=== PATIENT | male | born 1945 | race Caucasian/White ===

== ENCOUNTER 2016-09-14 20:51 | Emergency (ER) | payer OTHER ==
--- NOTE | 2016-09-15 00:56 | ED NURSING NOTES ---
Clinical Report - Nurses [facility] [address] [place] [address] 09/14/2016 20:51 Patient: CAROL ANN LEMUS TRIAGE Triage time 21:37 Sep 14 2016. Acuity: LEVEL 3. Chief Complaint: (abdominal pain). Alert. No acute distress. ( pt unable to provide a number). THERON COMA SCORE: [place] Coma Scale: 15- eyes open spontaneously (4); best verbal response- oriented x 4 (5); best motor response- obeys commands (6). --21:42 Lindy Pichardo R.N. 21:37 09/14/16. BP: 111/61. HR: 68. RR: 18. O2 saturation: 95%. Temp: 98.2 F. --21:42 Lindy Pichardo R.N. Weight: 60.7 kg stated. Height/Length: 73 inches Per Patient. BMI: 17.7. --21:36 Lindy Pichardo R.N. Medications Antidepressant. OTC laxative . Spiriva HandiHaler Inhalation. Symbicort Inhalation. --21:39 Lindy Pichardo R.N. Senna Laxative Oral. --21:40 Lindy Pichardo R.N. Medication/allergy information source: the patient's family. --21:42 Lindy Pichardo R.N. Allergies No Known Drug Allergy. --21:39 Lindy Pichardo R.N. History Arrived by private vehicle. Historian: patient. Accompanied by family and (son). Primary physician (Mary Jane). ( Son brought in his dad for concerns of Constipation. Dad c/o's Abdominal Pain. Drank Mag Cittrate with no relief.). This started yesterday. 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 PAST MEDICAL HX: Immunizations: has received pneumonia vaccine; seasonal influenza. SOCIAL HX: Former smoker. Alcohol use; consumes wine by the glass. No drug use. FALL RISK ASSESSMENT: Fall risk assessment completed. No fall risk identified. NUTRITIONAL RISK ASSESSMENT: The nutritional risk assessment revealed no deficiencies. FUNCTIONAL ASSESSMENT: Functional assessment: no impairments noted. LEARNING NEEDS ASSESSMENT: The learning needs assessment revealed no barriers. SKIN INTEGRITY ASSESSMENT: Skin integrity risk assessment completed. No skin integrity risk identified. --21:42 Lindy Pichardo R.N. PROBLEMS: UTI - Urinary Tract Infection. Urine retention . Abdominal Pain. Lewy Body Disease. Fecal Impaction. Immunizations. Weight loss of 25-30 lb in over last year. . Constipation. COPD - Chronic Obstructive Pulmonary Disease. --21:41 Lindy Pichardo R.N. ADDITIONAL SURGERIES: Hernia Repair. Tonsillectomy. --21:41 Lindy Pichardo R.N. Interventions ID band on patient. To room. --21:42 Lindy Pichardo R.N. PHYSICAL ASSESSMENT 21:48 09/14/16. To room via wheelchair. GENERAL / NEURO / PSYCH: Alert. Oriented X 4. Appears in no acute distress. RESPIRATORY: Respirations not labored. GI / : Abdominal tenderness diffusely. SKIN: Skin is warm and dry. --21:48 Dominga Turner. NURSING PROGRESS NOTES Patient ready for evaluation- ED physician notified. --21:42 Lindy Pichardo R.N. Pulse oximeter and NIBP monitor placed on patient; monitor alarms on. Patient gowned. Head of bed elevated. Warming measures: blanket applied. Reassurance given to the patient. Two patient identifiers checked. Call light placed in reach. Side rails up x 1. Bed placed in lowest position. Brakes of bed on. Patient ready for evaluation- chart flagged. --21:48 Dominga Turner 21:48 09/14/16. BP: 150/86. HR: 69. RR: 20. O2 saturation: 100% on room air. Pain level now: 03/22. --21:50 Dominga Turner 21:50 09/14/16. --21:50 Dominga Turner ( Milk of molasses enema administered. Patient assisted to bedside commode.). --22:57 Dominga Turner ( Patient cleaned and fresh linens applied to bed.). --22:57 Dominga Turner 22:58 09/14/2016 Fleet Enema (Enema) NH Supp/(NH) 1 application given. Allergies verified and confirmed 5 rights. --22:58 Dominga Turner ( RN attempted to disimpact patient, Fleets given again, small bowel movement.). --23:47 Dominga Turner 00:10 09/15/16. BP: 133/75. HR: 66. RR: 20. O2 saturation: 100% on room air. Pain level now: 0/10. --00:11 Dominga Turner ( Patient had medium BM. Patient assisted back into bed, skin cleaned and new linens applied. Clean depends placed on patient and catheter secured with Velcro strap. Patient states he feels better. Patient given water, warm blankets and lights dimmed.). --00:11 Dominga Turner ( Patient son called and updated on patient status.). --00:17 Dominga Turner 00:47 09/15/2016 Nitrofurantoin PO Capsules 100 mg given. Allergies verified and confirmed 5 rights. --00:47 Dominga Turner ( Patient states that he has no stomach pain anymore and he states he thinks he could go home and have a bowel moment. Patient told that xray shows some stool left but the patient states now that he is cleaned up and out of pain he does not want to do an additional enema.). --00:52 Dominga Turner ( Patient son updated on patient disposition. Son is on his way to hot die picker the patient. Spoke to son about discharge instructions.). --01:03 Dominga Turner. DISPOSITION / DISCHARGE Condition at departure: stable. No learning barriers present. Discharge instructions provided and reviewed with the patient. Discharge instructions not provided and reviewed with family. Reviewed medication(s) side effects, precautions, dosing and course information. Prescription(s) given to the relief pharmacist. Reviewed need for increased fluid intake. Patient and family verbalized understanding. Written instructions provided in Greenlandic. The patient was discharged by the physician. He was discharged home and accompanied by family. He left the Emergency Department in a wheelchair and via private vehicle. Family member driving. --01:04 Dominga Turner 01:03 09/15/16. BP: 116/70. HR: 65. RR: 20. O2 saturation: 96% on room air. Temp: 97.7 F (oral). Pain level now: 0/10. --01:04 Dominga Turner. Locked/Released at 09/15/2016 1:05 by Dominga Turner,
--- NOTE | 2016-09-15 00:56 | ED ORDER SUMMARY ---
..... Patient: CAROL ANN LEMUS OrderSheet [facility] VisitID: [id number] [place] [address] 71y, M Registration Date/Time: 09/14/2016 ORDER SHEET Weight: 60.7 kg (stated) Allergies: No Known Drug Allergy GENERAL ORDERS: Abd Series 2V Abd/1V Chest Urgent (22:09/14/2016 [facility]) (Ack 22:08 LTapper) (22:28 MCampbell) UA-Culture if indicated Urgent (:09/14/2016 [facility]) (Ack 22:08 LTapper) (0:12 HSoule) Abdomen 1V Upright (post disimpaction) Urgent (:09/15/2016 [facility]) (Ack 0:11 Kbekconstance) (0:33 Jerica MATUTE) MEDICATION ORDERS: - (Fleets enema OR - oil based then water based) (22:09/14/2016 [facility]) (Ack 22:18 HSoule) (22:58 HSoule) Nitrofurantoin PO 100 mg (NOW) (00:22 09/15/2016 [facility]) (Ack 0:28 HSoule) (0:47 HSoule) IV FLUIDS: ORDER SHEET NOTES: [Electronically signed by Dominga Turner (01:05 09/15/2016)] [Electronically signed by Thomas Downing DO (03:34 09/15/2016)] [Electronically locked/signed by Dominga Turner (01:05 09/15/2016)]
--- NOTE | 2016-09-15 00:56 | ED ORDER SUMMARY ---
..... Patient: CAROL ANN LEMUS OrderSheet [facility] VisitID: [id number] [place] [address] 71y, M Registration Date/Time: 09/14/2016 ORDER SHEET Weight: 60.7 kg (stated) Allergies: No Known Drug Allergy GENERAL ORDERS: Abd Series 2V Abd/1V Chest Urgent (22:09/14/2016 [facility]) (Ack 22:08 LTapper) (22:28 MCampbell) UA-Culture if indicated Urgent (:09/14/2016 [facility]) (Ack 22:08 LTapper) (0:12 HSoule) Abdomen 1V Upright (post disimpaction) Urgent (:09/15/2016 [facility]) (Ack 0:11 Kbekconstance) (0:33 Jerica MATUTE) MEDICATION ORDERS: - (Fleets enema CO - oil based then water based) (22:09/14/2016 [facility]) (Ack 22:18 HSoule) (22:58 HSoule) Nitrofurantoin PO 100 mg (NOW) (00:22 09/15/2016 [facility]) (Ack 0:28 HSoule) (0:47 HSoule) IV FLUIDS: ORDER SHEET NOTES: [Electronically signed by Dominga Turner (01:05 09/15/2016)] [Electronically signed by Thomas Downing DO (03:34 09/15/2016)] [Electronically locked/signed by Dominga Turner (01:05 09/15/2016)]
--- NOTE | 2016-09-15 00:56 | ED NURSING NOTES ---
Clinical Report - Nurses [facility] [address] [place] [address] 09/14/2016 20:51 Patient: CAROL ANN LEMUS TRIAGE Triage time 21:37 Sep 14 2016. Acuity: LEVEL 3. Chief Complaint: (abdominal pain). Alert. No acute distress. ( pt unable to provide a number). THERON COMA SCORE: [place] Coma Scale: 15- eyes open spontaneously (4); best verbal response- oriented x 4 (5); best motor response- obeys commands (6). --21:42 Lindy Pichardo R.N. 21:37 09/14/16. BP: 111/61. HR: 68. RR: 18. O2 saturation: 95%. Temp: 98.2 F. --21:42 Lindy Pichardo R.N. Weight: 60.7 kg stated. Height/Length: 73 inches Per Patient. BMI: 17.7. --21:36 Lindy Pichardo R.N. Medications Antidepressant. OTC laxative . Spiriva HandiHaler Inhalation. Symbicort Inhalation. --21:39 Lindy Pichardo R.N. Senna Laxative Oral. --21:40 Lindy Pichardo R.N. Medication/allergy information source: the patient's family. --21:42 Lindy Pichardo R.N. Allergies No Known Drug Allergy. --21:39 Lindy Pichardo R.N. History Arrived by private vehicle. Historian: patient. Accompanied by family and (son). Primary physician (Mary Jane). ( Son brought in his dad for concerns of Constipation. Dad c/o's Abdominal Pain. Drank Mag Cittrate with no relief.). This started yesterday. 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 PAST MEDICAL HX: Immunizations: has received pneumonia vaccine; seasonal influenza. SOCIAL HX: Former smoker. Alcohol use; consumes wine by the glass. No drug use. FALL RISK ASSESSMENT: Fall risk assessment completed. No fall risk identified. NUTRITIONAL RISK ASSESSMENT: The nutritional risk assessment revealed no deficiencies. FUNCTIONAL ASSESSMENT: Functional assessment: no impairments noted. LEARNING NEEDS ASSESSMENT: The learning needs assessment revealed no barriers. SKIN INTEGRITY ASSESSMENT: Skin integrity risk assessment completed. No skin integrity risk identified. --21:42 Lindy Pichardo R.N. PROBLEMS: UTI - Urinary Tract Infection. Urine retention . Abdominal Pain. Lewy Body Disease. Fecal Impaction. Immunizations. Weight loss of 25-30 lb in over last year. . Constipation. COPD - Chronic Obstructive Pulmonary Disease. --21:41 Lindy Pichardo R.N. ADDITIONAL SURGERIES: Hernia Repair. Tonsillectomy. --21:41 Lindy Pichardo R.N. Interventions ID band on patient. To room. --21:42 Lindy Pichardo R.N. PHYSICAL ASSESSMENT 21:48 09/14/16. To room via wheelchair. GENERAL / NEURO / PSYCH: Alert. Oriented X 4. Appears in no acute distress. RESPIRATORY: Respirations not labored. GI / : Abdominal tenderness diffusely. SKIN: Skin is warm and dry. --21:48 Dominga Turner. NURSING PROGRESS NOTES Patient ready for evaluation- ED physician notified. --21:42 Lindy Pichardo R.N. Pulse oximeter and NIBP monitor placed on patient; monitor alarms on. Patient gowned. Head of bed elevated. Warming measures: blanket applied. Reassurance given to the patient. Two patient identifiers checked. Call light placed in reach. Side rails up x 1. Bed placed in lowest position. Brakes of bed on. Patient ready for evaluation- chart flagged. --21:48 Dominga Turner 21:48 09/14/16. BP: 150/86. HR: 69. RR: 20. O2 saturation: 100% on room air. Pain level now: 03/22. --21:50 Dominga Turner 21:50 09/14/16. --21:50 Dominga Turner ( Milk of molasses enema administered. Patient assisted to bedside commode.). --22:57 Dominga Turner ( Patient cleaned and fresh linens applied to bed.). --22:57 Dominga Turner 22:58 09/14/2016 Fleet Enema (Enema) GA Supp/(GA) 1 application given. Allergies verified and confirmed 5 rights. --22:58 Dominga Turner ( RN attempted to disimpact patient, Fleets given again, small bowel movement.). --23:47 Dominga Turner 00:10 09/15/16. BP: 133/75. HR: 66. RR: 20. O2 saturation: 100% on room air. Pain level now: 0/10. --00:11 Dominga Turner ( Patient had medium BM. Patient assisted back into bed, skin cleaned and new linens applied. Clean depends placed on patient and catheter secured with Velcro strap. Patient states he feels better. Patient given water, warm blankets and lights dimmed.). --00:11 Dominga Turner ( Patient son called and updated on patient status.). --00:17 Dominga Turner 00:47 09/15/2016 Nitrofurantoin PO Capsules 100 mg given. Allergies verified and confirmed 5 rights. --00:47 Dominga Turner ( Patient states that he has no stomach pain anymore and he states he thinks he could go home and have a bowel moment. Patient told that xray shows some stool left but the patient states now that he is cleaned up and out of pain he does not want to do an additional enema.). --00:52 Dominga Turner ( Patient son updated on patient disposition. Son is on his way to orange picker the patient. Spoke to son about discharge instructions.). --01:03 Dominga Turner. DISPOSITION / DISCHARGE Condition at departure: stable. No learning barriers present. Discharge instructions provided and reviewed with the patient. Discharge instructions not provided and reviewed with family. Reviewed medication(s) side effects, precautions, dosing and course information. Prescription(s) given to the livestock inspector. Reviewed need for increased fluid intake. Patient and family verbalized understanding. Written instructions provided in Amharic. The patient was discharged by the physician. He was discharged home and accompanied by family. He left the Emergency Department in a wheelchair and via private vehicle. Family member driving. --01:04 Dominga Turner 01:03 09/15/16. BP: 116/70. HR: 65. RR: 20. O2 saturation: 96% on room air. Temp: 97.7 F (oral). Pain level now: 0/10. --01:04 Dominga Turner. Locked/Released at 09/15/2016 1:05 by Dominga Turner,
--- NOTE | 2016-09-15 00:56 | ED CLINICAL REPORT ---
Clinical Report - Physicians/Mid Levels [facility] [address] [place] [place] [address] 09/14/2016 20:51 Patient: CAROL ANN LEMUS Time Seen: 22:04. Arrived- By private vehicle. Historian- patient. HISTORY OF PRESENT ILLNESS Chief Complaint: ABDOMINAL PAIN and CONSTIPATION. At its maximum, severity described as moderate. When seen in the E.D., it was almost gone. Modifying factors- worsened by movement. Relieved by rest. It is described as "pain" and cramping. No radiation. It is described as generalized in location and located in the left lower quadrant. This started yesterday and is still present. It was gradual in onset and has been waxing/waning. No nausea, vomiting or diarrhea. Similar symptoms previously: Recent medical care: The patient was seen recently at this facility in the emergency department. REVIEW OF SYSTEMS The patient has had constipation and difficulty with urination. No pain with urination, urinary frequency, fever, headache or sore throat. No chest pain, difficulty breathing or back pain. All systems otherwise negative, except as recorded above. PAST HISTORY Primary physician (Mary Jane) Urine retention . Abdominal Pain. Lewy Body Disease. Fecal Impaction. Weight loss of 25-30 lb in over last year. . Constipation. COPD SURGERIES: Hernia Repair. Tonsillectomy. Medications: Senna Laxative Oral. Antidepressant. OTC laxative . Spiriva HandiHaler Inhalation. Symbicort Inhalation. Allergies: No Known Drug Allergy. SOCIAL HISTORY Former smoker. Occasional alcohol use. No drug use. ADDITIONAL NOTES The nursing notes have been reviewed. PHYSICAL EXAM Vital Signs: 09/14/2016 21:48 BP: 150/86. HR: 69. RR: 20. O2 saturation: 100%. Pain level now: 03/22. 09/14/2016 21:37 BP: 111/61. HR: 68. RR: 18. O2 saturation: 95%. Temp: 98.2 F. Appearance: Alert. No acute distress. Eyes: Pupils equal, round and reactive to light. Eyes normal inspection. No scleral icterus or pale conjunctivae. ENT: Pharynx normal. No pharyngeal erythema or tonsillar exudate. The mucous membranes are not dry. Neck: Normal inspection. Neck supple. CVS: Heart sounds normal. Pulses normal. Respiratory: No respiratory distress. Breath sounds normal. Abdomen: Soft. No mass. No rebound tenderness or guarding. Back: Normal inspection. : (Kelley cath in place). Skin: Skin warm and dry. Normal skin color. Normal skin turgor. Extremities: Bilateral moderate pitting edema of the lower extremities. Extremities exhibit normal ROM. No calf tenderness. Neuro: No motor deficit. LABS, X-RAYS, AND EKG Laboratory Tests: UA-Culture if indicated: (WILY: 09/14/2016 23:55) ( MsgRcvd 09/15/2016 00:08) Final results Test Result Flag Units (Reference) URINE COLOR YELLOW URINE APPEARANCE CLEAR URINE GLUCOSE NEGATIVE (NEGATIVE) URINE BILIRUBIN 1+ (NEGATIVE) QNS FOR CONFIRMATORY BILIRUBIN TEST URINE KETONE NEGATIVE (NEGATIVE) URINE SPECIFIC GRAVITY >= 1.030 (1.010-1.030) URINE PH 5.5 (5.0-8.0) URINE PROTEIN TRACE (NEGATIVE) URINE UROBILINOGEN 0.2 EU/dL (0.2-1.0) URINE NITRITE NEGATIVE (NEGATIVE) URINE BLOOD 2+ (NEGATIVE) URINE LEUK ESTERASE POSITIVE (NEGATIVE) URINE RBC 5-10 rbc/hpf (0-1) URINE WBC 15-25 wbc/hpf (0-1) URINE EPITHELIAL CELLS 1-3 EPI/hpf (0-5) URINE BACTERIA MODERATE (2+ TO 3+) (NONE SEEN) URINE COMMENT CULTURE INDICATED CALCIUM OXALATE CRYSTALS 2+URINE CULTURES ARE SET-UP BASED ON THE FOLLOWING CRITERIA:POSITIVE NITRITEPOSITIVE LEUKOCYTE ESTERASEGREATER THAN 10 WHITE BLOOD CELLSMODERATE (2+) OR GREATER BACTERIA . Microbiology: Urine culture ordered. Pulse Oximetry: 09/14/2016 21:48 O2 saturation: 100%. (FIO2 - room air). Interpretation: normal. PROGRESS AND PROCEDURES Course of Care: Nitrofurantoin 100 mg PO given. Fleets enema KS. Milk of molasses enema administered 00:30 09/15/16. Patient is stable. Physical exam findings are improved. Symptoms much better. 00:54 09/15/16. No abdominal pain. Pt still with some stool in rectum on x-ray, but refuses further enemas. Pt will need to follow up closely with his pcp / [facility] for ongoing management of this chronic, recurring condition. Patient/family counseled. Old ED records reviewed. Patient has had multiple ED visits. Disposition: Discharged. Condition: stable and improved. CLINICAL IMPRESSION Constipation Acute urinary tract infection with cystitis associated with indwelling catheter. Lewy Body Disease. COPD (stable) Chronic urinary retention with chronic Kelley catheter. INSTRUCTIONS Drink plenty of fluids. Avoid alcohol and NSAIDS. NSAIDS include aspirin, ibuprofen (Advil) and naproxen (Aleve). Avoid fatty, fried/greasy, lactose-containing (such as milk, cheese and ice cream), salty and spicy foods until better. Warnings: Further evaluation is necessary. It is very important to follow up with a physician. GENERAL WARNINGS: Return or contact your physician immediately if your condition worsens or changes unexpectedly, if not improving as expected, or if other problems arise. Your Current Medications: CONTINUE TAKING THE FOLLOWING MEDICATIONS: Antidepressant*. OTC laxative *. Senna Laxative Oral. Spiriva HandiHaler Inhalation. Symbicort Inhalation. Prescription Medications: Macrobid 100 mg: Take 1 capsule orally every 12 hours for 7 days. No refills. Substitution is permissible. Miralax: take 1 measuring cupful supplied (1 heaping tablespoon) mixed in 8 ounces liquid daily as needed for constipation. Dispense fourteen (14) ounce bottle. No refill. Substitution is permissible. OTC Medications: Take Dulcolax, magnesium citrate and Fleets enema according to label instructions. Available over the counter. Follow-up: Follow up with your doctor Primary physician (Mary Jane) tomorrow. Follow up with a spring forger- as recommended by your primary care physician. Call for the next available appointment. (Electronically signed by Thomas Downing DO 09/15/2016 3:34)
--- NOTE | 2016-09-15 01:35 | DIAGNOSTIC IMAGING REPORT ---
PROCEDURE: XR ABD SERIES 2V ABD/1V CHEST INDICATION: CONSTIPATION TECHNIQUE: AP supine and upright views with PA view chest. COMPARISON: Comparison is made to acute abdominal radiograph on 07/26/2016. FINDINGS: ABDOMEN: There is moderate gaseous distention of the colon and small bowel with air-fluid levels. There is moderate to large amount of stool in the rectum. There is no evidence of free air. There mild degenerate changes of the lumbar spine. CHEST: Pulmonary hyperexpansion. Mild biapical parenchymal scarring. Lungs are otherwise clear. Heart and mediastinum are normal. Thorax is normal. IMPRESSION: 1. Moderate to large amount of stool in the rectum with moderate gaseous distention of the colon small bowel. Findings suggest obstipation. 2. Pulmonary hyperexpansion and chronic obstructive pulmonary disease. 3. Findings discussed with Dr. Downing.
--- NOTE | 2016-09-15 01:39 | DIAGNOSTIC IMAGING REPORT ---
PROCEDURE: XR ABDOMEN 1 VIEW UPRIGHT INDICATION: Follow-up disimpaction. TECHNIQUE: AP upright view. (0025 hours). COMPARISON: Compared to acute abdominal series on 09/14/2016. FINDINGS: There has been moderate improvement with partial evacuation of stool in the rectum with resolving gaseous distention of the colon (moderate residual). IMPRESSION: 1. Moderate improvement with partial evacuation of rectal stool and resolving bowel distention. 2. Findings discussed with Dr. Downing.
--- NOTE | 2016-09-15 03:35 | ED MAR SUMMARY ---
..... Medication Administration Record [facility] [address] [place] [address] Patient: CAROL ANN LEMUS Visit ID: [id number] 71y, M Weight: 60.7 kg Height/Length: 73 in BMI: 17.7 ALLERGIES: No Known Drug Allergy Given 22:58 09/14/2016 Dominga Turner, Medication Administered: FLEET ENEMA [ND] (ENEMA), Dose: 1 application Supp/(ND) ND. Medication Ordered: - (Fleets enema ND - oil based then water based). Given 00:47 09/15/2016 Dominga Turner, Medication Administered: NITROFURANTOIN [PO], Dose: 100 mg Capsules PO. Medication Ordered: Nitrofurantoin PO 100 mg (NOW).
--- NOTE | 2016-09-15 03:35 | ED MED RECONCILIATION SUMMARY ---
Patient: CAROL ANN LEMUS Medication Reconciliation Report [facility] VisitID: [id number] [address] [place] [address] 71y, M Registration Date/Time: 09/14/2016 Weight: 60.7 kg Height/Length: 73 in. BMI: 17.7 ALLERGIES: No Known Drug Allergy The patient's Home Medications are listed below: CONTINUE TAKING THE FOLLOWING MEDICATIONS: Antidepressant OTC laxative Senna Laxative Oral Spiriva HandiHaler Inhalation Symbicort Inhalation The source(s) of the original Home Medication information: patient's family member The following Medications were given to the patient in the Emergency Department: Fleet Enema [[place]] [place] 1 application, administered: 09/14/2016 10:58:00 PM Nitrofurantoin [PO] PO 100 mg, administered: 09/15/2016 12:47:00 AM The following Medications were prescribed to the patient: Take Dulcolax, magnesium citrate and Fleets enema according to label instructions. Available over the counter. -- Thomas Downing DO Macrobid 100 mg: Take 1 capsule orally every 12 hours for 7 days. No refills. Substitution is permissible. -- Thomas Downing DO Miralax: take 1 measuring cupful supplied (1 heaping tablespoon) mixed in 8 ounces liquid daily as needed for constipation. Dispense fourteen (14) ounce bottle. No refill. Substitution is permissible. -- Thomas Downing DO
--- NOTE | 2016-09-15 03:35 | ED MED RECONCILIATION SUMMARY ---
Patient: CAROL ANN LEMUS Medication Reconciliation Report [facility] VisitID: [id number] [address] [place] [address] 71y, M Registration Date/Time: 09/14/2016 Weight: 60.7 kg Height/Length: 73 in. BMI: 17.7 ALLERGIES: No Known Drug Allergy The patient's Home Medications are listed below: CONTINUE TAKING THE FOLLOWING MEDICATIONS: Antidepressant OTC laxative Senna Laxative Oral Spiriva HandiHaler Inhalation Symbicort Inhalation The source(s) of the original Home Medication information: patient's family member The following Medications were given to the patient in the Emergency Department: Fleet Enema [AK] AK 1 application, administered: 09/14/2016 10:58:00 PM Nitrofurantoin [PO] PO 100 mg, administered: 09/15/2016 12:47:00 AM The following Medications were prescribed to the patient: Take Dulcolax, magnesium citrate and Fleets enema according to label instructions. Available over the counter. -- Thomas Downing DO Macrobid 100 mg: Take 1 capsule orally every 12 hours for 7 days. No refills. Substitution is permissible. -- Thomas Downing DO Miralax: take 1 measuring cupful supplied (1 heaping tablespoon) mixed in 8 ounces liquid daily as needed for constipation. Dispense fourteen (14) ounce bottle. No refill. Substitution is permissible. -- Thomas Downing DO
--- NOTE | 2016-09-15 03:35 | ED MAR SUMMARY ---
..... Medication Administration Record [facility] [address] [place] [address] Patient: CAROL ANN LEMUS Visit ID: [id number] 71y, M Weight: 60.7 kg Height/Length: 73 in BMI: 17.7 ALLERGIES: No Known Drug Allergy Given 22:58 09/14/2016 Dominga Turner, Medication Administered: FLEET ENEMA [VA] (ENEMA), Dose: 1 application Supp/(VA) VA. Medication Ordered: - (Fleets enema VA - oil based then water based). Given 00:47 09/15/2016 Dominga Turner, Medication Administered: NITROFURANTOIN [PO], Dose: 100 mg Capsules PO. Medication Ordered: Nitrofurantoin PO 100 mg (NOW).
--- NOTE | 2016-09-15 03:35 | ED DISCHARGE INSTRUCTIONS ---
Patient: CAROL ANN LEMUS General Instructions [facility] VisitID: [id number] [place] [address] 71y, M Registration Date/Time: 09/14/2016 Constipation Acute urinary tract infection with cystitis associated with indwelling catheter. Lewy Body Disease. COPD (stable) Chronic urinary retention with chronic Kelley catheter. INSTRUCTIONS Drink plenty of fluids. Avoid alcohol and NSAIDS. NSAIDS include aspirin, ibuprofen (Advil) and naproxen (Aleve). Avoid fatty, fried/greasy, lactose-containing (such as milk, cheese and ice cream), salty and spicy foods until better. Warnings: Further evaluation is necessary. It is very important to follow up with a physician. GENERAL WARNINGS: Return or contact your physician immediately if your condition worsens or changes unexpectedly, if not improving as expected, or if other problems arise. Your Current Medications: CONTINUE TAKING THE FOLLOWING MEDICATIONS: Antidepressant*. OTC laxative *. Senna Laxative Oral. Spiriva HandiHaler Inhalation. Symbicort Inhalation. Prescription Medications: Macrobid 100 mg: Take 1 capsule orally every 12 hours for 7 days. No refills. Substitution is permissible. Miralax: take 1 measuring cupful supplied (1 heaping tablespoon) mixed in 8 ounces liquid daily as needed for constipation. Dispense fourteen (14) ounce bottle. No refill. Substitution is permissible. OTC Medications: Take Dulcolax, magnesium citrate and Fleets enema according to label instructions. Available over the counter. Follow-up: Follow up with your doctor Primary physician (Mary Jane) tomorrow. Follow up with a infectious disease technician- as recommended by your primary care physician. Call for the next available appointment. ADDITIONAL INFORMATION Constipation (Adult) Constipation is bowel movements that are less frequent than usual. Stools often become very hard and difficult to pass. This may lead to abdominal pain and bloating. It may also cause painful bowel movements. Constipation may be due to a diet thats low in fiber. Some medications, especially pain medications, can also cause it. Constipation may be treated with enemas, suppositories, laxatives or stool softeners. Your doctor will advise you which will work best for you. Follow the advice below to help avoid this problem in the future. Home Care Medication: Take any medicines as directed. Some laxatives are safe only for occasional use. Others can be taken on a regular basis. Talk to your doctor or pharmacist if you have questions. General Care: Prescription pain medications can cause constipation. If you are prescribed pain medications, ask the doctor whether you should also take a stool softener. A diet high in fiber with plenty of fluids helps to maintain regular, soft bowel movements. The following foods are good sources of dietary fiber: Cereals and breads: Whole grain cereal with bran, oatmeal, rolled oats, whole grain breads Fruits: All fruits (fresh and dried), raisins, prunes, apricots, berries, figs Vegetables: Any fresh vegetables, especially peas, broccoli, brussels sprouts, winter squash, green beans, cauliflower, schafer beans, carrots Other: Popcorn, brown rice Drink plenty of water when you increase the amount of fiber you eat. Follow Up with your doctor or return to this facility if symptoms do not improve in the next few days. You may require further tests or a referral to a specialist. Get Prompt Medical Attention if any of the following occur: Fever over 100.4F (38C) Failure to resume normal bowel movements Increasing abdominal or back pain Nausea or vomiting Abdominal swelling Blood in the stool Weakness, dizziness or fainting Unexpected vaginal bleeding Bladder Infection,Male (Adult) A bladder infection ("cystitis" or "UTI") usually causes a constant urge to urinate, and a burning when passing urine. Urine may be cloudy, smelly or dark. There may be also be pain in the lower abdomen. Cystitis in males is not common. It may be caused by a partial blockage in the urinary system that keeps the bladder from emptying completely. This is most often related to an enlarged prostate gland. Home Care: Drink lots of fluids (at least 6-8 glasses a day). This will flush the bacteria out of your bladder. Avoid sexual intercourse until your symptoms are gone. Avoid caffeine, alcohol, and spicy foods. They could irritate the bladder. A bladder infection is treated with antibiotics. You may also be given Pyridium (generic - phenazopyridine) to reduce burning with urination. This will cause urine to become a bright orange color, which can stain clothing. Follow Up with your doctor or this facility if ALL symptoms have not cleared within five days. It is important to keep your follow up appointment to discuss with your doctor the need for further tests of the urinary tract. Get Prompt Medical Attention if any of the following occur: Fever of 100.4F (38C) or higher, or as directed by your healthcare provider No improvement by the third day of treatment Increasing back or abdominal pain Repeated vomiting; unable to keep medicine down Weakness, dizziness or fainting High Fiber Diet Fiber is present in all fruits, vegetables, cereals and grains. Fiber passes through the body undigested. A high fiber diet helps food move through the intestinal tract. The added bulk is helpful in preventing constipation. In people with diverticulosis it serves to clean out the pouches along the colon wall while preventing new ones from forming. A high fiber diet also reduces the risk of colon cancer, decreases blood cholesterol and prevents high blood sugar in people with diabetes. The foods listed below are high in fiber and should be included in your diet. If you are not used to high fiber foods, start with 1 or 2 foods from this list. Every 3-4 days add a new one to your diet until you are eating 4 high fiber foods per day. This should give you 20-35 Gm of fiber/day. It is also important to drink a lot of water when you are on this diet (6-8 glasses a day). Water causes the fiber to swell and increases the benefit. Foods High In Dietary Fiber: BREADS: Made with 100% whole wheat flour; oanh, wheat or rye crackers; tortillas, bran muffins CEREALS: Whole grain cereal with bran (Chex, Raisin Bran, [place] Bran), oatmeal, rolled oats, granola, wheat flakes, brown rice NUTS: Any nuts FRUITS: All fresh fruits along with edible skins, (bananas, citrus fruit, mangoes, pears, prunes, raisins, apples, pineapple, apricot, melon, jams and marmalades), fruit juices (especially prune juice) VEGETABLES: All types, preferably raw or lightly cooked: especially, celery, eggplant, potatoes,spinach, broccoli, brussel sprouts, winter squash, carrots, cauliflower, soybeans, lentils, fresh and dried beans of all kinds OTHER: Popcorn, any spices Nitrofurantoin, Nitrofurantoin, Macrocrystalline Oral capsule What is this medicine? NITROFURANTOIN (vivienne degroot) is an antibiotic. It is used to treat urinary tract infections. How should I use this medicine? Take this medicine by mouth with a glass of water. Follow the directions on the prescription label. Take this medicine with food or milk. Take your doses at regular intervals. Do not take your medicine more often than directed. Do not stop taking except on your doctor's advice. Talk to your detail supervisor regarding the use of this medicine in children. While this drug may be prescribed for selected conditions, precautions do apply. What side effects may I notice from receiving this medicine? Side effects that you should report to your doctor or health foster care therapist as soon as possible: allergic reactions like skin rash or hives, swelling of the face, lips, or tongue chest pain cough difficulty breathing dizziness, drowsiness fever or infection joint aches or pains pale or blue-tinted skin redness, blistering, peeling or loosening of the skin, including inside the mouth tingling, burning, pain, or numbness in hands or feet unusual bleeding or bruising unusually weak or tired yellowing of eyes or skin Side effects that usually do not require medical attention (report to your doctor or health foster care therapist if they continue or are bothersome): dark urine diarrhea headache loss of appetite nausea or vomiting temporary hair loss What may interact with this medicine? antacids containing magnesium trisilicate probenecid quinolone antibiotics like ciprofloxacin, lomefloxacin, norfloxacin and ofloxacin sulfinpyrazone What if I miss a dose? If you miss a dose, take it as soon as you can. If it is almost time for your next dose, take only that dose. Do not take double or extra doses. Where should I keep my medicine? Keep out of the reach of children. Store at room temperature between 15 and 30 degrees C (59 and 86 degrees F). Protect from light. Throw away any unused medicine after the expiration date. What should I tell my health care provider before I take this medicine? They need to know if you have any of these conditions: anemia diabetes [id number] dehydrogenase deficiency kidney disease liver disease lung disease other chronic illness an unusual or allergic reaction to nitrofurantoin, other antibiotics, other medicines, foods, dyes or preservatives or trying to get breast-feeding What should I watch for while using this medicine? Tell your doctor or health foster care therapist if your symptoms do not improve or if you get new symptoms. Drink several glasses of water a day. If you are taking this medicine for a long time, visit your doctor for regular checks on your progress. If you are diabetic, you may get a false positive result for sugar in your urine with certain brands of urine tests. Check with your doctor. You have been given the following additional information: Constipation (Adult) Bladder Infection, Male (Adult) Diet, High Fiber Nitrofurantoin, Nitrofurantoin, Macrocrystalline Oral capsule (Electronically signed by Thomas Downing DO 09/15/2016 3:34)
== END 2016-09-15 01:00 | disposition home or self-care (01) ==
LOC: ED SRH 20:51
DX: T83.511A Infection and inflammatory reaction due to indwelling urethral catheter, initial encounter (principal); N39.0 Urinary tract infection, site not specified; N30.90 Cystitis, unspecified without hematuria; J44.9 Chronic obstructive pulmonary disease, unspecified; K59.00 Constipation, unspecified; G31.83 Neurocognitive disorder with Lewy bodies; R33.9 Retention of urine, unspecified; R82.79 Other abnormal findings on microbiological examination of urine
CPT/HCPCS: 90004; 90070; 90469

== ENCOUNTER 2016-10-04 15:49 | Emergency (ER) | payer OTHER ==
--- NOTE | 2016-10-04 19:15 | ED ORDER SUMMARY ---
..... Patient: CAROL ANN LEMUS OrderSheet [facility] VisitID: [id number] [place] [address] 71y, M Registration Date/Time: 10/04/2016 ORDER SHEET Weight: 58.9 kg (stated) Allergies: No Known Drug Allergy GENERAL ORDERS: - (Enemas until clear) (16:53 10/04/2016 Caren MATUTE) (19:12 Michael Mcfadden) CBC w Diff Urgent (16:54 10/04/2016 Caren MATUTE) (Ack 16:54 LMuller) (17:03 LMuller) CMP Urgent (16:54 10/04/2016 Caren MATUTE) (Ack 16:54 LMuller) (17:03 LMuller) BNP Urgent (16:54 10/04/2016 Caren MATUTE) (Ack 16:54 LMuller) (17:03 LMuller) MEDICATION ORDERS: IV FLUIDS: ORDER SHEET NOTES: [Electronically signed by Dieudonne Glynn MD (20:12 10/04/2016)] [Electronically signed by Jassi Underwood R.N. (21:56 10/04/2016)] [Electronically locked/signed by Jassi Underwood R.N. (21:56 10/04/2016)]
--- NOTE | 2016-10-04 19:15 | ED NURSING NOTES ---
Clinical Report - [facility] [address] [place] [address] 10/04/2016 15:49 Patient: CAROL ANN LEMUS TRIAGE Triage time 16:14 Oct 04 2016. Acuity: LEVEL 3. Chief Complaint: (Rectal Pain). Alert. MAUREEN COMA SCORE: Maureen Coma Scale: 15- eyes open spontaneously (4); best verbal response- oriented x 4 (5); best motor response- obeys commands (6). --16:25 Jassi Underwood R.N. 16:14 10/04/16. BP: 127/76. HR: 65. RR: 16. O2 saturation: 96% on room air. Temp: 98.3 F (oral). Pain level now: 12/21. --16:25 Jassi Underwood R.N. Weight: 58.9 kg stated. Height/Length: 72 inches Per Patient. BMI: 17.6. --16:16 Jassi Underwood R.N. Medications OTC laxative . Senna Laxative Oral. Spiriva HandiHaler Inhalation. Symbicort Inhalation. --16:19 Jassi Underwood R.N. Allergies No Known Drug Allergy. --16:19 Jassi Underwood R.N. Medication/allergy information source: the patient. --16:25 Jassi Underwood R.N. History Arrived by private vehicle. Historian: patient. Accompanied by family and son. Primary physician (Humberto Hinton). ( Rectal Pain. Pt states that he had a small BM yesterday. Son also states that his father's bilat Lower Extrem's are swollen.). The patient has had weakness. Treatment CLAIM AUDITOR: None. SOCIAL HX: Smoker- current status unknown. No alcohol use or drug use. No infectious disease exposure. ABUSE ASSESSMENT: No report of abuse. FALL RISK ASSESSMENT: Fall risk assessment completed. No fall risk identified. NUTRITIONAL RISK ASSESSMENT: The nutritional risk assessment revealed no deficiencies. FUNCTIONAL ASSESSMENT: Functional assessment: no impairments noted. LEARNING NEEDS ASSESSMENT: The learning needs assessment revealed no barriers. SKIN INTEGRITY ASSESSMENT: Skin integrity risk assessment completed. No skin integrity risk identified. --16:25 Jassi Underwood R.N. PROBLEMS: BPH. UTI - Urinary Tract Infection. Urine retention . Abdominal Pain. Lewy Body Disease. Fecal Impaction. Immunizations. Weight loss of 25-30 lb in over last year. . Constipation. COPD - Chronic Obstructive Pulmonary Disease. --16:20 Jassi Underwood R.N. ADDITIONAL SURGERIES: Hernia Repair. Tonsillectomy. --16:20 Jassi Underwood R.N. Interventions ID band on patient. To treatment room. --16:25 Jassi Underwood R.N. PHYSICAL ASSESSMENT Ambulatory to room. GENERAL / NEURO / PSYCH: Alert. Oriented X 4. HEENT: No facial asymmetry noted. Mucous membranes are pink. RESPIRATORY: Respirations not labored. CVS: Normal sinus rhythm noted. GI / : Abdomen soft. Abdominal tenderness in the lower abdomen. SKIN: Skin intact. Skin is warm and dry. Normal skin turgor. --16:26 Jassi Underwood R.N. NURSING PROGRESS NOTES Reassurance given to the patient. Patient identifiers checked. Call light placed in reach. Side rails up x 2. Bed placed in lowest position. Brakes of bed on. Patient ready for evaluation- chart flagged and ED physician notified. --16:26 Jassi Underwood R.N. 17:10 10/04/16. ( Pt given a mineral oil enema). --17:14 Jassi Underwood R.N. 18:00. ( Up to bedside commode and passed two nice chucks of stool). --19:09 Jassi Underwood R.N. 18:15. ( Back in bed and given a Fleets Solution enema). --19:10 Jassi Underwood R.N. 18:45. ( Up to BSC and passed a small amount of stool.). --19:12 Jassi Underwood R.N. DISPOSITION / DISCHARGE Departure time: 2024. --21:46 Jassi Underwood R.N. 20:15 10/04/16. BP: 138/83. HR: 66. RR: 16. O2 saturation: 99% on room air. Temp: 98.8 F. Pain level now: 0/10. --21:52 Jassi Underwood R.N. 20:25. Condition at departure: improved. No learning barriers present. Discharge instructions provided and reviewed with the patient. Reviewed medication(s) (prescription given to pt). Reviewed referral to family practice for followup. Patient verbalized understanding. Written instructions provided in Citizen [place]. The patient was discharged by the physician. He was discharged home and accompanied by family. He left the Emergency Department ambulatory and via private vehicle. Family member driving. --21:56 Jassi Underwood R.N. Locked/Released at 10/04/2016 21:56 by Jassi Underwood R.N.
--- NOTE | 2016-10-04 19:15 | ED ORDER SUMMARY ---
..... Patient: CAROL ANN LEMUS OrderSheet [facility] VisitID: [id number] [place] [address] 71y, M Registration Date/Time: 10/04/2016 ORDER SHEET Weight: 58.9 kg (stated) Allergies: No Known Drug Allergy GENERAL ORDERS: - (Enemas until clear) (16:53 10/04/2016 Caren MATUTE) (19:12 Michael Mcfadden) CBC w Diff Urgent (16:54 10/04/2016 Craen MATUTE) (Ack 16:54 LMuller) (17:03 LMuller) CMP Urgent (16:54 10/04/2016 Caren MATUTE) (Ack 16:54 LMuller) (17:03 LMuller) BNP Urgent (16:54 10/04/2016 Caren MATUTE) (Ack 16:54 LMuller) (17:03 LMuller) MEDICATION ORDERS: IV FLUIDS: ORDER SHEET NOTES: [Electronically signed by Dieudonne Glynn MD (20:12 10/04/2016)] [Electronically signed by Jassi Underwood R.N. (21:56 10/04/2016)] [Electronically locked/signed by Jassi Underwood R.N. (21:56 10/04/2016)]
--- NOTE | 2016-10-04 19:15 | ED CLINICAL REPORT ---
Clinical Report - Physicians/Mid Levels [facility] [address] [place] [address] 10/04/2016 15:49 Patient: CAROL ANN LEMUS Time Seen: 16:33 Oct 04 2016. Arrived- By private vehicle. Historian- patient. CPT: ER phys charges level 4 (#[id number]). HISTORY OF PRESENT ILLNESS Chief Complaint: ABDOMINAL PAIN and Constipation. It is described as cramping and it is described as located in the periumbilical area. This started about 2 days CORPORATE CLAIMS EXAMINER; ( Rectal Pain. Pt states that he had a small BM yesterday. Son also states that his father's bilat Lower Extrem's are swollen.). The patient has had weakness. and is still present. At its maximum, severity described as mild. When seen in the E.D., severity described as mild. Modifying factors. Not worsened by anything. Not relieved by anything. The patient has had nausea and loss of appetite. No vomiting. No recent travel. Similar symptoms previously: Recent medical care: The patient was seen recently at this facility in the emergency department (20 days ago). Seen for similar symptoms. Diagnosis: constipation. REVIEW OF SYSTEMS The patient has had constipation. No black stools, hematemesis, difficulty with urination, pain with urination or fever. No sore throat, chest pain, difficulty breathing, cough or joint pain. No skin rash, chills or back pain. All systems otherwise negative, except as recorded above. PAST HISTORY BPH. UTI - Urinary Tract Infection. Urine retention . Abdominal Pain. Lewy Body Disease. Fecal Impaction. Immunizations. Weight loss of 25-30 lb in over last year. . Constipation. COPD - Chronic Obstructive Pulmonary Disease Hernia Repair. Tonsillectomy Colonoscopy 5 years ago was normal. Medications: OTC laxative . Senna Laxative Oral. Spiriva HandiHaler Inhalation. Symbicort Inhalation. Allergies: No Known Drug Allergy. SOCIAL HISTORY No alcohol use or drug use. ADDITIONAL NOTES The nursing notes have been reviewed. PHYSICAL EXAM Vital Signs: 10/04/2016 16:14 BP: 127/76. HR: 65. RR: 16. O2 saturation: 96%. Temp: 98.3 F. Pain level now: 12/21. Appearance: Alert. Eyes: Eyes normal inspection. ENT: Pharynx normal. Neck: Normal inspection. CVS: Normal heart rate and rhythm. Heart sounds normal. Pulses normal. Respiratory: No respiratory distress. Breath sounds normal. Abdomen: Soft and nontender. Rectal: Abnormal digital exam: fecal impaction. No tenderness. No digital exam tenderness. Skin: Skin warm and dry. Pallor. No rash. Extremities: Bilateral moderate 2+ pitting edema of the lower extremities involving both feet and both ankles. Extremities exhibit normal ROM. Neuro: No motor deficit. No sensory deficit. LABS, X-RAYS, AND EKG Laboratory Tests: CBC w Diff: (WILY: 10/04/2016 17:05) ( MsgRcvd 10/04/2016 17:26) Final results Test Result Flag Units (Reference) WHITE BLOOD COUNT 6.6 K/uL (4.5-11.5) RED BLOOD COUNT 4.45 L M/uL (4.50-5.90) HEMOGLOBIN 13.4 L gm/dL (13.5-17.5) HEMATOCRIT 41.7 % (41.0-53.0) MEAN CELL VOLUME 94 fL (80-100) MEAN CORPUSCULAR HGB 30 pg (26-34) MEAN CORPUSCULAR HGB CONC 32 g/dL (31-37) RED CELL DISTRIBUTION WIDTH 14.5 % (11.6-14.8) PLATELET COUNT 249 K/uL (150-400) NEUTROPHIL % 76.8 H % (50-75) LYMPH % 12.2 L % (25-40) MONO % 8.6 % (3-14) EOSINOPHIL % 2.1 % (0-4) BASOPHIL % 0.3 % (0-2) BNP: (WILY: 10/04/2016 17:05) ( MsgRcvd 10/04/2016 18:36) Final results Test Result Flag Units (Reference) B-TYPE NATRIURETIC PEPTIDE 44.0 pg/ml (5-100) CMP: (WILY: 10/04/2016 17:05) ( MsgRcvd 10/04/2016 17:48) Final results Test Result Flag Units (Reference) GLUCOSE 101 mg/dL (70-110) BUN 24 H mg/dL (7-18) CREATININE 1.0 mg/dL (0.6-1.3) Estimated GFR >60 mL/min Estimated GFR- >60 mL/min Note: Persistent reduction over 3 months in eGFR<60 mL/min/1.73 m2 defines CKD. Patients with eGFR values>=60 mL/min/1.73 m2 may also have CKD if evidence ofpersistent proteinuria. Additional information may be foundat www.kidney.org. SODIUM 143 mmol/L (136-145) POTASSIUM 4.4 mmol/L (3.5-5.1) CHLORIDE 105 mmol/L (98-107) CARBON DIOXIDE 33 H mmol/L (21-32) CALCIUM 8.8 mg/dL (8.5-10.1) TOTAL PROTEIN 7.6 g/dL (6.4-8.2) ALBUMIN 3.5 g/dL (3.3-5.0) BILIRUBIN, TOTAL 0.3 mg/dL (0.0-1.0) ALKALINE PHOSPHATASE 72 U/L (46-116) AST (SGOT) 16 U/L (15-37) ALT (SGPT) 18 U/L (12-78) . PROGRESS AND PROCEDURES Course of Care: Patient was given enemas until clear with good response. The patient had complaints of edema of both feet. He is not on any diuretics no history of CHF. He does not appear to be anemic or hyperosmolar. Unclear what his salt intake is. No obvious metabolic parameters on his blood work that would explain his edema. May be dependent edema. The patient may be able to use support stockings and follow up for this. Patient/family counseled. Old medical records ordered. Disposition: Discharged. Condition: stable and improved. CLINICAL IMPRESSION Bilateral pedal edema secondary to chronic venous insufficiency. Obstipation. INSTRUCTIONS Drink plenty of fluids. (Add fiber to diet and stool softener. Support stockings for legs.). Your Current Medications: CONTINUE TAKING THE FOLLOWING MEDICATIONS: OTC laxative *. Senna Laxative Oral. Spiriva HandiHaler Inhalation. Symbicort Inhalation. Prescription Medications: GoLytely 4 oz every 15 minutes until clear. # 1 jug. Follow-up: Follow up with your doctor in one week. Call for an appointment. Understanding of the discharge instructions verbalized by patient. (Electronically signed by Dieudonne Glynn MD 10/04/2016 20:12)
--- NOTE | 2016-10-04 19:15 | ED NURSING NOTES ---
Clinical Report - Nurses [facility] [address] [place] [address] 10/04/2016 15:49 Patient: CAROL ANN LEMUS TRIAGE Triage time 16:14 Oct 04 2016. Acuity: LEVEL 3. Chief Complaint: (Rectal Pain). Alert. MAUREEN COMA SCORE: Maureen Coma Scale: 15- eyes open spontaneously (4); best verbal response- oriented x 4 (5); best motor response- obeys commands (6). --16:25 Jassi Underwood R.N. 16:14 10/04/16. BP: 127/76. HR: 65. RR: 16. O2 saturation: 96% on room air. Temp: 98.3 F (oral). Pain level now: 12/21. --16:25 Jassi Underwood R.N. Weight: 58.9 kg stated. Height/Length: 72 inches Per Patient. BMI: 17.6. --16:16 Jassi Underwood R.N. Medications OTC laxative . Senna Laxative Oral. Spiriva HandiHaler Inhalation. Symbicort Inhalation. --16:19 Jassi Underwood R.N. Allergies No Known Drug Allergy. --16:19 Jassi Underwood R.N. Medication/allergy information source: the patient. --16:25 Jassi Underwood R.N. History Arrived by private vehicle. Historian: patient. Accompanied by family and son. Primary physician (Humberto Hinton). ( Rectal Pain. Pt states that he had a small BM yesterday. Son also states that his father's bilat Lower Extrem's are swollen.). The patient has had weakness. Treatment INFORMATION SERVICES TECH: None. SOCIAL HX: Smoker- current status unknown. No alcohol use or drug use. No infectious disease exposure. ABUSE ASSESSMENT: No report of abuse. FALL RISK ASSESSMENT: Fall risk assessment completed. No fall risk identified. NUTRITIONAL RISK ASSESSMENT: The nutritional risk assessment revealed no deficiencies. FUNCTIONAL ASSESSMENT: Functional assessment: no impairments noted. LEARNING NEEDS ASSESSMENT: The learning needs assessment revealed no barriers. SKIN INTEGRITY ASSESSMENT: Skin integrity risk assessment completed. No skin integrity risk identified. --16:25 Jassi Underwood R.N. PROBLEMS: BPH. UTI - Urinary Tract Infection. Urine retention . Abdominal Pain. Lewy Body Disease. Fecal Impaction. Immunizations. Weight loss of 25-30 lb in over last year. . Constipation. COPD - Chronic Obstructive Pulmonary Disease. --16:20 Jassi Underwood R.N. ADDITIONAL SURGERIES: Hernia Repair. Tonsillectomy. --16:20 Jassi Underwood R.N. Interventions ID band on patient. To treatment room. --16:25 Jassi Underwood R.N. PHYSICAL ASSESSMENT Ambulatory to room. GENERAL / NEURO / PSYCH: Alert. Oriented X 4. HEENT: No facial asymmetry noted. Mucous membranes are pink. RESPIRATORY: Respirations not labored. CVS: Normal sinus rhythm noted. GI / : Abdomen soft. Abdominal tenderness in the lower abdomen. SKIN: Skin intact. Skin is warm and dry. Normal skin turgor. --16:26 Jassi Underwood R.N. NURSING PROGRESS NOTES Reassurance given to the patient. Patient identifiers checked. Call light placed in reach. Side rails up x 2. Bed placed in lowest position. Brakes of bed on. Patient ready for evaluation- chart flagged and ED physician notified. --16:26 Jassi Underwood R.N. 17:10 10/04/16. ( Pt given a mineral oil enema). --17:14 Jassi Underwood R.N. 18:00. ( Up to bedside commode and passed two nice chucks of stool). --19:09 Jassi Underwood R.N. 18:15. ( Back in bed and given a Fleets Solution enema). --19:10 Jassi Underwood R.N. 18:45. ( Up to BSC and passed a small amount of stool.). --19:12 Jassi Underwood R.N. DISPOSITION / DISCHARGE Departure time: 2024. --21:46 Jassi Underwood R.N. 20:15 10/04/16. BP: 138/83. HR: 66. RR: 16. O2 saturation: 99% on room air. Temp: 98.8 F. Pain level now: 0/10. --21:52 Jassi Underwood R.N. 20:25. Condition at departure: improved. No learning barriers present. Discharge instructions provided and reviewed with the patient. Reviewed medication(s) (prescription given to pt). Reviewed referral to family practice for followup. Patient verbalized understanding. Written instructions provided in Guamanian. The patient was discharged by the physician. He was discharged home and accompanied by family. He left the Emergency Department ambulatory and via private vehicle. Family member driving. --21:56 Jassi Underwood R.N. Locked/Released at 10/04/2016 21:56 by Jassi Underwood R.N.
--- NOTE | 2016-10-04 19:15 | ED CLINICAL REPORT ---
Clinical Report - Physicians/Mid Levels Located Within [facility] [address] [place] [address] 10/04/2016 15:49 Patient: CAROL ANN LEMUS Time Seen: 16:33 Oct 04 2016. Arrived- By private vehicle. Historian- patient. CPT: ER phys charges level 4 (#[id number]). HISTORY OF PRESENT ILLNESS Chief Complaint: ABDOMINAL PAIN and Constipation. It is described as cramping and it is described as located in the periumbilical area. 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 Pt states that he had a small BM yesterday. Son also states that his father's bilat Lower Extrem's are swollen.). The patient has had weakness. and is still present. At its maximum, severity described as mild. When seen in the E.D., severity described as mild. Modifying factors. Not worsened by anything. Not relieved by anything. The patient has had nausea and loss of appetite. No vomiting. No recent travel. Similar symptoms previously: Recent medical care: The patient was seen recently at this facility in the emergency department (20 days ago). Seen for similar symptoms. Diagnosis: constipation. REVIEW OF SYSTEMS The patient has had constipation. No black stools, hematemesis, difficulty with urination, pain with urination or fever. No sore throat, chest pain, difficulty breathing, cough or joint pain. No skin rash, chills or back pain. All systems otherwise negative, except as recorded above. PAST HISTORY BPH. UTI - Urinary Tract Infection. Urine retention . Abdominal Pain. Lewy Body Disease. Fecal Impaction. Immunizations. Weight loss of 25-30 lb in over last year. . Constipation. COPD - Chronic Obstructive Pulmonary Disease Hernia Repair. Tonsillectomy Colonoscopy 5 years ago was normal. Medications: OTC laxative . Senna Laxative Oral. Spiriva HandiHaler Inhalation. Symbicort Inhalation. Allergies: No Known Drug Allergy. SOCIAL HISTORY No alcohol use or drug use. ADDITIONAL NOTES The nursing notes have been reviewed. PHYSICAL EXAM Vital Signs: 10/04/2016 16:14 BP: 127/76. HR: 65. RR: 16. O2 saturation: 96%. Temp: 98.3 F. Pain level now: 12/21. Appearance: Alert. Eyes: Eyes normal inspection. ENT: Pharynx normal. Neck: Normal inspection. CVS: Normal heart rate and rhythm. Heart sounds normal. Pulses normal. Respiratory: No respiratory distress. Breath sounds normal. Abdomen: Soft and nontender. Rectal: Abnormal digital exam: fecal impaction. No tenderness. No digital exam tenderness. Skin: Skin warm and dry. Pallor. No rash. Extremities: Bilateral moderate 2+ pitting edema of the lower extremities involving both feet and both ankles. Extremities exhibit normal ROM. Neuro: No motor deficit. No sensory deficit. LABS, X-RAYS, AND EKG Laboratory Tests: CBC w Diff: (WILY: 10/04/2016 17:05) ( MsgRcvd 10/04/2016 17:26) Final results Test Result Flag Units (Reference) WHITE BLOOD COUNT 6.6 K/uL (4.5-11.5) RED BLOOD COUNT 4.45 L M/uL (4.50-5.90) HEMOGLOBIN 13.4 L gm/dL (13.5-17.5) HEMATOCRIT 41.7 % (41.0-53.0) MEAN CELL VOLUME 94 fL (80-100) MEAN CORPUSCULAR HGB 30 pg (26-34) MEAN CORPUSCULAR HGB CONC 32 g/dL (31-37) RED CELL DISTRIBUTION WIDTH 14.5 % (11.6-14.8) PLATELET COUNT 249 K/uL (150-400) NEUTROPHIL % 76.8 H % (50-75) LYMPH % 12.2 L % (25-40) MONO % 8.6 % (3-14) EOSINOPHIL % 2.1 % (0-4) BASOPHIL % 0.3 % (0-2) BNP: (WILY: 10/04/2016 17:05) ( MsgRcvd 10/04/2016 18:36) Final results Test Result Flag Units (Reference) B-TYPE NATRIURETIC PEPTIDE 44.0 pg/ml (5-100) CMP: (WILY: 10/04/2016 17:05) ( MsgRcvd 10/04/2016 17:48) Final results Test Result Flag Units (Reference) GLUCOSE 101 mg/dL (70-110) BUN 24 H mg/dL (7-18) CREATININE 1.0 mg/dL (0.6-1.3) Estimated GFR >60 mL/min Estimated GFR- >60 mL/min Note: Persistent reduction over 3 months in eGFR<60 mL/min/1.73 m2 defines CKD. Patients with eGFR values>=60 mL/min/1.73 m2 may also have CKD if evidence ofpersistent proteinuria. Additional information may be foundat www.kidney.org. SODIUM 143 mmol/L (136-145) POTASSIUM 4.4 mmol/L (3.5-5.1) CHLORIDE 105 mmol/L (98-107) CARBON DIOXIDE 33 H mmol/L (21-32) CALCIUM 8.8 mg/dL (8.5-10.1) TOTAL PROTEIN 7.6 g/dL (6.4-8.2) ALBUMIN 3.5 g/dL (3.3-5.0) BILIRUBIN, TOTAL 0.3 mg/dL (0.0-1.0) ALKALINE PHOSPHATASE 72 U/L (46-116) AST (SGOT) 16 U/L (15-37) ALT (SGPT) 18 U/L (12-78) . PROGRESS AND PROCEDURES Course of Care: Patient was given enemas until clear with good response. The patient had complaints of edema of both feet. He is not on any diuretics no history of CHF. He does not appear to be anemic or hyperosmolar. Unclear what his salt intake is. No obvious metabolic parameters on his blood work that would explain his edema. May be dependent edema. The patient may be able to use support stockings and follow up for this. Patient/family counseled. Old medical records ordered. Disposition: Discharged. Condition: stable and improved. CLINICAL IMPRESSION Bilateral pedal edema secondary to chronic venous insufficiency. Obstipation. INSTRUCTIONS Drink plenty of fluids. (Add fiber to diet and stool softener. Support stockings for legs.). Your Current Medications: CONTINUE TAKING THE FOLLOWING MEDICATIONS: OTC laxative *. Senna Laxative Oral. Spiriva HandiHaler Inhalation. Symbicort Inhalation. Prescription Medications: GoLytely 4 oz every 15 minutes until clear. # 1 jug. Follow-up: Follow up with your doctor in one week. Call for an appointment. Understanding of the discharge instructions verbalized by patient. (Electronically signed by Dieudonne Glynn MD 10/04/2016 20:12)
--- NOTE | 2016-10-04 21:57 | ED MED RECONCILIATION SUMMARY ---
Patient: CAROL ANN LEMUS Medication Reconciliation Report [facility] VisitID: [id number] [address] [place] [address] 71y, M Registration Date/Time: 10/04/2016 Weight: 58.9 kg Height/Length: 72 in. BMI: 17.6 ALLERGIES: No Known Drug Allergy The patient's Home Medications are listed below: CONTINUE TAKING THE FOLLOWING MEDICATIONS: OTC laxative Senna Laxative Oral Spiriva HandiHaler Inhalation Symbicort Inhalation The source(s) of the original Home Medication information: patient The following Medications were given to the patient in the Emergency Department: None. The following Medications were prescribed to the patient: GoLytely 4 oz every 15 minutes until clear. # 1 jug. -- Dieudonne Glynn MD
--- NOTE | 2016-10-04 21:57 | ED DISCHARGE INSTRUCTIONS ---
Patient: CAROL ANN LEMUS General Instructions [facility] VisitID: [id number] [place] [address] 71y, M Registration Date/Time: 10/04/2016 Bilateral pedal edema secondary to chronic venous insufficiency. Obstipation. INSTRUCTIONS Drink plenty of fluids. (Add fiber to diet and stool softener. Support stockings for legs.). Your Current Medications: CONTINUE TAKING THE FOLLOWING MEDICATIONS: OTC laxative *. Senna Laxative Oral. Spiriva HandiHaler Inhalation. Symbicort Inhalation. Prescription Medications: GoLytely 4 oz every 15 minutes until clear. # 1 jug. Follow-up: Follow up with your doctor in one week. Call for an appointment. Understanding of the discharge instructions verbalized by patient. ADDITIONAL INFORMATION Leg Swelling [Bilateral] Swelling of the feet, ankles and legs is called "Edema." It is due to excess fluid collecting in the tissues. Because of gravity, excess fluid in the body settles in the lowest part. This is why the legs and feet are most affected. Some of the causes for edema include: Disease of the heart (congestive heart failure or "CHF") Prolonged standing or sitting (with the legs in the down position) Infection of the feet or legs Venous Insufficiency (congestion of blood in the veins of the legs) Varicose veins (dilated veins of the lower leg) Garters, or clothing that constricts your legs. (These will cause venous congestion by restricting blood flow.) Some medicines (hormones such as control pills; some blood pressure medicines, such as calcium channel blockers; steroids; some antidepressants such as MAO inhibitors and tricyclics.) Menstrual periods with fluid retention Renal insufficiency (a form of kidney disease) Liver failure (Some swelling is normal, but a sudden increase in leg swelling or weight gain can be a sign of a dangerous complication of ). Medical treatment will depend on the cause of your swelling. Diuretics (water pills) may be prescribed to remove excess fluid. Home Care: Do not wear garments that constrict your legs (such as garters). Elevate your legs while lying or sitting. If infection, injury or recent surgery is the cause for your swelling, stay off your legs as much as possible until symptoms improve. If your doctor says that your leg swelling is caused by venous insufficiency or varicose veins, do not sit or marketing administrator one place for long periods of time. Take breaks and walk about every few hours. Brisk walking is a good exercise and helps circulate the congested blood from your leg. Talk to your doctor about the use of support stockings to prevent daytime leg swelling. If your doctor says that heart disease is the cause of your leg swelling, follow a low-salt diet to prevent excess fluid retention. Follow Up with your doctor or as advised by our staff. Get Prompt Medical Attention if any of the following occur: New or worsening shortness of breath or chest pain Increasing swelling in both legs or ankles Swelling of the abdomen Redness, warmth or swelling in one leg Fever of 100.4F (38C) or higher, or as directed by your healthcare provider Yellow color to the skin or eyes Rapid, unexplained weight gain You have been given the following additional information: Peripheral Edema, Bilateral (Electronically signed by Dieudonne Glynn MD 10/04/2016 20:12)
--- NOTE | 2016-10-04 21:57 | ED DISCHARGE INSTRUCTIONS ---
Patient: CAROL ANN LEMUS General Instructions [facility] VisitID: [id number] [place] [address] 71y, M Registration Date/Time: 10/04/2016 Bilateral pedal edema secondary to chronic venous insufficiency. Obstipation. INSTRUCTIONS Drink plenty of fluids. (Add fiber to diet and stool softener. Support stockings for legs.). Your Current Medications: CONTINUE TAKING THE FOLLOWING MEDICATIONS: OTC laxative *. Senna Laxative Oral. Spiriva HandiHaler Inhalation. Symbicort Inhalation. Prescription Medications: GoLytely 4 oz every 15 minutes until clear. # 1 jug. Follow-up: Follow up with your doctor in one week. Call for an appointment. Understanding of the discharge instructions verbalized by patient. ADDITIONAL INFORMATION Leg Swelling [Bilateral] Swelling of the feet, ankles and legs is called "Edema." It is due to excess fluid collecting in the tissues. Because of gravity, excess fluid in the body settles in the lowest part. This is why the legs and feet are most affected. Some of the causes for edema include: Disease of the heart (congestive heart failure or "CHF") Prolonged standing or sitting (with the legs in the down position) Infection of the feet or legs Venous Insufficiency (congestion of blood in the veins of the legs) Varicose veins (dilated veins of the lower leg) Garters, or clothing that constricts your legs. (These will cause venous congestion by restricting blood flow.) Some medicines (hormones such as control pills; some blood pressure medicines, such as calcium channel blockers; steroids; some antidepressants such as MAO inhibitors and tricyclics.) Menstrual periods with fluid retention Renal insufficiency (a form of kidney disease) Liver failure (Some swelling is normal, but a sudden increase in leg swelling or weight gain can be a sign of a dangerous complication of ). Medical treatment will depend on the cause of your swelling. Diuretics (water pills) may be prescribed to remove excess fluid. Home Care: Do not wear garments that constrict your legs (such as garters). Elevate your legs while lying or sitting. If infection, injury or recent surgery is the cause for your swelling, stay off your legs as much as possible until symptoms improve. If your doctor says that your leg swelling is caused by venous insufficiency or varicose veins, do not sit or stockroom inventory clerk one place for long periods of time. Take breaks and walk about every few hours. Brisk walking is a good exercise and helps circulate the congested blood from your leg. Talk to your doctor about the use of support stockings to prevent daytime leg swelling. If your doctor says that heart disease is the cause of your leg swelling, follow a low-salt diet to prevent excess fluid retention. Follow Up with your doctor or as advised by our staff. Get Prompt Medical Attention if any of the following occur: New or worsening shortness of breath or chest pain Increasing swelling in both legs or ankles Swelling of the abdomen Redness, warmth or swelling in one leg Fever of 100.4F (38C) or higher, or as directed by your healthcare provider Yellow color to the skin or eyes Rapid, unexplained weight gain You have been given the following additional information: Peripheral Edema, Bilateral (Electronically signed by Dieudonne Glynn MD 10/04/2016 20:12)
--- NOTE | 2016-10-04 21:57 | ED MAR SUMMARY ---
..... Medication Administration Record [facility] [address] [place], [place] [id number] Patient: KALLIE LEMUSISIDRA Jorgensen Visit ID: [id number] 71y, M Weight: 58.9 kg Height/Length: 72 in BMI: 17.6 ALLERGIES: No Known Drug Allergy
--- NOTE | 2016-10-04 21:57 | ED MED RECONCILIATION SUMMARY ---
Patient: CAROL ANN LEMUS Medication Reconciliation Report [facility] VisitID: [id number] [address] [place] [address] 71y, M Registration Date/Time: 10/04/2016 Weight: 58.9 kg Height/Length: 72 in. BMI: 17.6 ALLERGIES: No Known Drug Allergy The patient's Home Medications are listed below: CONTINUE TAKING THE FOLLOWING MEDICATIONS: OTC laxative Senna Laxative Oral Spiriva HandiHaler Inhalation Symbicort Inhalation The source(s) of the original Home Medication information: patient The following Medications were given to the patient in the Emergency Department: None. The following Medications were prescribed to the patient: GoLytely 4 oz every 15 minutes until clear. # 1 jug. -- Dieudonne Glynn MD
--- NOTE | 2016-10-04 21:57 | ED MAR SUMMARY ---
..... Medication Administration Record [facility] [address] [place], [place] [id number] Patient: KALLIE LEMUSISIDRA Jorgensen Visit ID: [id number] 71y, M Weight: 58.9 kg Height/Length: 72 in BMI: 17.6 ALLERGIES: No Known Drug Allergy
== END 2016-10-04 20:25 | disposition home or self-care (01) ==
LOC: ED SRH 15:49
DX: K59.00 Constipation, unspecified (principal); I87.2 Venous insufficiency (chronic) (peripheral); J44.9 Chronic obstructive pulmonary disease, unspecified; Z79.51 Long term (current) use of inhaled steroids
CPT/HCPCS: 90100; 91320; 95059

== ENCOUNTER 2016-11-04 16:59 | Emergency (ER) | payer OTHER ==
--- NOTE | 2016-11-04 19:52 | ED NURSING NOTES ---
Clinical Report - Nurses [facility] [address] [place] [address] 11/04/2016 16:59 Patient: CAROL ANN LEMUS TRIAGE Triage time 17:04. Acuity: LEVEL 3. Chief Complaint: CONSTIPATION. 17:04 11/04/16. 17:04 11/04/16. Alert. ( Per EMS, pt has abd pain yesterday and today. Pt with history of constipation. Pt has not had a BM for a couple of days. Pt states he was hospitalized ([facility]) about a month ago. Pt states he has caregiver at home.). SEPSIS SCREEN: Sepsis Screen. Negative (no infection suspected/documented). --17:11 Skylar Darling R.N. 17:04 11/04/16. BP: 126/84. HR: 73. RR: 14. O2 saturation: 100% on room air. Temp: 97.3 F. Pain level now: 03/22. --17:11 Skylar Darling R.N. Weight: 77.1 kg stated. Height/Length: 72 inches Per Patient. BMI: 23.1. --17:05 Skylar Darling R.N. Medications OTC laxative . Senna Laxative Oral. Spiriva HandiHaler Inhalation. Symbicort Inhalation. --17:09 Skylar Darling R.N. Medication/allergy information source: the patient and EMS. --17:11 Skylar Darling R.N. Allergies No Known Drug Allergy. --17:09 Skylar Darling R.N. History Arrived by private vehicle. Historian: patient. Unaccompanied. Primary physician (JEN SKELTON). 17:04 11/04/16. 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 See EMS report. BP: 120/90. HR: 81. RR: 16. O2 saturation: 99 % room air. PAST MEDICAL HX: Immunizations: up-to-date. SOCIAL HX: Smoker- current status unknown. No alcohol use or drug use. No recent travel. No infectious disease exposure. No known contact with a sick individual. ABUSE ASSESSMENT: No report of abuse. NUTRITIONAL RISK ASSESSMENT: The nutritional risk assessment revealed no deficiencies. FUNCTIONAL ASSESSMENT: Functional assessment: no impairments noted. LEARNING NEEDS ASSESSMENT: The learning needs assessment revealed no barriers. FALL RISK ASSESSMENT: Fall risk assessment completed per protocol. Risk factors identified include patient age greater than 65 years. Fall interventions initiated. Side rails up x2. Brakes on Bed in low position. Call light in reach of patient. Instructed not to get up without assistance. SKIN INTEGRITY ASSESSMENT: Skin integrity risk assessment completed. No skin integrity risk identified. --17:11 Skylar Darling R.N. PROBLEMS: Pedal Edema. BPH. UTI - Urinary Tract Infection. Urine retention . Abdominal Pain. Lewy Body Disease. Fecal Impaction. Immunizations. Weight loss of 25-30 lb in over last year. . Constipation. COPD - Chronic Obstructive Pulmonary Disease. --17:09 Skylar Darling R.N. ADDITIONAL SURGERIES: Hernia Repair. Tonsillectomy. --17:09 Skylar Darling R.N. Assessment 17:04 11/04/16. --17:11 Skylar Darling R.N. Interventions 17:04 11/04/16. 17:04 11/04/16. ID and allergy band on patient. To treatment room. --17:11 Skylar Darling R.N. PHYSICAL ASSESSMENT 17:08 11/04/16. To room via stretcher. GENERAL / NEURO / PSYCH: Alert. Oriented X 4. RESPIRATORY: Respirations not labored. CVS: Capillary refill less than 2 seconds. GI / : Abdomen soft. SKIN: Skin is warm and dry. --17:08 Skylar Darling R.N. NURSING PROGRESS NOTES 17:08 11/04/16. The plan of care for this patient has been created. Patient gowned. Head of bed elevated. Reassurance given. Two patient identifiers checked. Call light placed in reach. Side rails up x 2. Bed placed in lowest position. Brakes of bed on. Brakes of chair on. --17:08 Skylar Darling R.N. 18:23 11/04/2016 Milk of Molasses * [place] 100 mLs --18:28 Johnny Desouza R.N. 19:13 11/04/16. ( Pt was able to pass a small out of stool. Pt states that his abd pain is better. Gave an additional Fleets enema to help pass more stool. Pt was able to transfer to bed side commode with one person assist. Call light within reach.). --19:13 Johnny Desouza R.N. 19:21 11/04/16. Care transferred and report received. --19:21 Johnny Desouza R.N. 19:35. ( First contact with pt. Pt sitting on BSC, small amount of fecal matter in commode, approx equivalent to 7-8 grapes. Pt asking if he is getting an x-ray. Pt assisted back to bed by 2 staff, pt cleaned and depends placed on pt. pt very stiff, and moves slowly.). --20:03 Maria D Martinez R.N. DISPOSITION / DISCHARGE 21:00. Condition at departure: improved and stable. Discharge instructions provided and reviewed with the patient and family. Reviewed medication(s) (mag citrate, colace). Patient and family verbalized understanding. Written instructions provided in Mosotho. The patient was discharged home and accompanied by family. He left the Emergency Department in a wheelchair and via private vehicle. Driving (son). --21:21 Maria D Martinez R.N. 21:00 11/04/16. BP: 116/70. HR: 72. RR: 16. O2 saturation: 100%. Temp: deferred. Pain level now: 01/20. --21:21 Maria D Martinez R.N. Locked/Released at 11/04/2016 21:22 by Maria D Martinez R.N.
--- NOTE | 2016-11-04 19:52 | ED NURSING NOTES ---
Clinical Report - Nurses [facility] [address] [place] [address] 11/04/2016 16:59 Patient: CAROL ANN LEMUS TRIAGE Triage time 17:04. Acuity: LEVEL 3. Chief Complaint: CONSTIPATION. 17:04 11/04/16. 17:04 11/04/16. Alert. ( Per EMS, pt has abd pain yesterday and today. Pt with history of constipation. Pt has not had a BM for a couple of days. Pt states he was hospitalized ([facility]) about a month ago. Pt states he has caregiver at home.). SEPSIS SCREEN: Sepsis Screen. Negative (no infection suspected/documented). --17:11 Skylar Darling R.N. 17:04 11/04/16. BP: 126/84. HR: 73. RR: 14. O2 saturation: 100% on room air. Temp: 97.3 F. Pain level now: 03/22. --17:11 Skylar Darling R.N. Weight: 77.1 kg stated. Height/Length: 72 inches Per Patient. BMI: 23.1. --17:05 Skylar Darling R.N. Medications OTC laxative . Senna Laxative Oral. Spiriva HandiHaler Inhalation. Symbicort Inhalation. --17:09 Skylar Darling R.N. Medication/allergy information source: the patient and EMS. --17:11 Skylar Darling R.N. Allergies No Known Drug Allergy. --17:09 Skylar Darling R.N. History Arrived by private vehicle. Historian: patient. Unaccompanied. Primary physician (JEN SKELTON). 17:04 11/04/16. Treatment BATCH DUMPER: None. See EMS report. BP: 120/90. HR: 81. RR: 16. O2 saturation: 99 % room air. PAST MEDICAL HX: Immunizations: up-to-date. SOCIAL HX: Smoker- current status unknown. No alcohol use or drug use. No recent travel. No infectious disease exposure. No known contact with a sick individual. ABUSE ASSESSMENT: No report of abuse. NUTRITIONAL RISK ASSESSMENT: The nutritional risk assessment revealed no deficiencies. FUNCTIONAL ASSESSMENT: Functional assessment: no impairments noted. LEARNING NEEDS ASSESSMENT: The learning needs assessment revealed no barriers. FALL RISK ASSESSMENT: Fall risk assessment completed per protocol. Risk factors identified include patient age greater than 65 years. Fall interventions initiated. Side rails up x2. Brakes on Bed in low position. Call light in reach of patient. Instructed not to get up without assistance. SKIN INTEGRITY ASSESSMENT: Skin integrity risk assessment completed. No skin integrity risk identified. --17:11 Skylar Darling R.N. PROBLEMS: Pedal Edema. BPH. UTI - Urinary Tract Infection. Urine retention . Abdominal Pain. Lewy Body Disease. Fecal Impaction. Immunizations. Weight loss of 25-30 lb in over last year. . Constipation. COPD - Chronic Obstructive Pulmonary Disease. --17:09 Skylar Darling R.N. ADDITIONAL SURGERIES: Hernia Repair. Tonsillectomy. --17:09 Skylar Darling R.N. Assessment 17:04 11/04/16. --17:11 Skylar Darling R.N. Interventions 17:04 11/04/16. 17:04 11/04/16. ID and allergy band on patient. To treatment room. --17:11 Skylar Darling R.N. PHYSICAL ASSESSMENT 17:08 11/04/16. To room via stretcher. GENERAL / NEURO / PSYCH: Alert. Oriented X 4. RESPIRATORY: Respirations not labored. CVS: Capillary refill less than 2 seconds. GI / : Abdomen soft. SKIN: Skin is warm and dry. --17:08 Skylar Darling R.N. NURSING PROGRESS NOTES 17:08 11/04/16. The plan of care for this patient has been created. Patient gowned. Head of bed elevated. Reassurance given. Two patient identifiers checked. Call light placed in reach. Side rails up x 2. Bed placed in lowest position. Brakes of bed on. Brakes of chair on. --17:08 Skylar Darling R.N. 18:23 11/04/2016 Milk of Molasses * [place] 100 mLs --18:28 Johnny Desouza R.N. 19:13 11/04/16. ( Pt was able to pass a small out of stool. Pt states that his abd pain is better. Gave an additional Fleets enema to help pass more stool. Pt was able to transfer to bed side commode with one person assist. Call light within reach.). --19:13 Johnny Desouza R.N. 19:21 11/04/16. Care transferred and report received. --19:21 Johnny Desouza R.N. 19:35. ( First contact with pt. Pt sitting on BSC, small amount of fecal matter in commode, approx equivalent to 7-8 grapes. Pt asking if he is getting an x-ray. Pt assisted back to bed by 2 staff, pt cleaned and depends placed on pt. pt very stiff, and moves slowly.). --20:03 Maria D Martinez R.N. DISPOSITION / DISCHARGE 21:00. Condition at departure: improved and stable. Discharge instructions provided and reviewed with the patient and family. Reviewed medication(s) (mag citrate, colace). Patient and family verbalized understanding. Written instructions provided in Sammarinese. The patient was discharged home and accompanied by family. He left the Emergency Department in a wheelchair and via private vehicle. Driving (son). --21:21 Maria D Martinez R.N. 21:00 11/04/16. BP: 116/70. HR: 72. RR: 16. O2 saturation: 100%. Temp: deferred. Pain level now: 01/20. --21:21 Maria D Martinez R.N. Locked/Released at 11/04/2016 21:22 by Maria D Martinez R.N.
--- NOTE | 2016-11-04 19:52 | ED ORDER SUMMARY ---
..... Patient: CAROL ANN LEMUS OrderSheet [facility] VisitID: [id number] [address] [place] [address] 71y, M Registration Date/Time: 11/04/2016 ORDER SHEET Weight: 77.1 kg (stated) Allergies: No Known Drug Allergy GENERAL ORDERS: MEDICATION ORDERS: - (enema) (17:57 11/04/2016 Indira Elise) (Ack 18:27 JBoardleestephania R.N.) (18:28 JBoarcharles R.N.) IV FLUIDS: ORDER SHEET NOTES: [Electronically signed by Maria D Martinez R.N. (21:22 11/04/2016)] [Electronically signed by Thomas Triplett Dr. (14:26 11/11/2016)] [Electronically locked/signed by Maria D Martinez R.N. (21:22 11/04/2016)]
--- NOTE | 2016-11-04 19:52 | ED CLINICAL REPORT ---
Clinical Report - Physicians/Mid Levels [facility] [address] [place] [address] 11/04/2016 16:59 Patient: CAROL ANN LEMUS Arrived- By ambulance. Historian- patient. HISTORY OF PRESENT ILLNESS Chief Complaint: constipation. This started today and is still present but is improving. It was gradual in onset and has been intermittent but is not gone now. It is described as reports intermediate rectal pain. No radiation. At its maximum, severity described as moderate. When seen in the E.D., severity described as mild. Modifying factors- (worsened by constipation. relieved with bowel movement). No nausea, loss of appetite, vomiting or diarrhea. Similar symptoms previously: Several times. Recent medical care: Not recently seen/assessed. REVIEW OF SYSTEMS The patient has had constipation. No black stools, hematemesis or bloody stools. All systems otherwise negative, except as recorded above. PAST HISTORY See nurses notes. Medications: OTC laxative . Senna Laxative Oral. Spiriva HandiHaler Inhalation. Symbicort Inhalation. Allergies: No Known Drug Allergy. SOCIAL HISTORY Never smoker. No alcohol use or drug use. No recent travel. Is a local resident. ADDITIONAL NOTES The nursing notes have been reviewed. PHYSICAL EXAM Vital Signs: 11/04/2016 17:04 BP: 126/84. HR: 73. RR: 14. O2 saturation: 100%. Temp: 97.3 F. Pain level now: 7/10. Blood pressure normal. Oxygen saturation normal. Appearance: Alert. Oriented X3. No acute distress. Eyes: Pupils equal, round and reactive to light. Eyes normal inspection. ENT: Ears normal. Nose normal. Pharynx normal. Neck: Normal inspection. Neck supple. CVS: Normal heart rate and rhythm. Heart sounds normal. Pulses normal. Respiratory: No respiratory distress. Breath sounds normal. Chest nontender. Abdomen: Soft and nontender. Abnormal bowel sounds (hypoactive). No organomegaly. No mass. Femoral pulses equal. Back: Normal inspection. Rectal: Rectal exam normal and nontender. Stool heme negative. (POC test reference range: negative). Skin: Skin warm and dry. Normal skin color. No rash. Normal skin turgor. Extremities: Extremities exhibit normal ROM. No lower extremity edema. PROGRESS AND PROCEDURES Course of Care: The patient is a 71 yo male presenting for evaluation of constipation. No abdominal pain on history. No tenderness to the abdomen on exam. Do not feel patient requires imaging or lab studies at this time. patient also appears to be in no acute distress and no-toxic. Patient furthermore reports it gets better with enema. Discussed with patient doing the enema in the comfort and privacy of home or here in the ED. Patient elected to have it done here. Patient reevaluated and found to have continued benign exam. I discussed with the patient workup, diagnosis, home care, follow-up, and return precautions. All questions have been answered. The patient expressed understanding of these instructions and was agreeable to them. Do not feel patient needs to be admitted to the hospital or require further ED workup/evaluation. Disposition: Discharged. Condition: good. CLINICAL IMPRESSION 11/04/2016 17:04 BP: 126/84. HR: 73. RR: 14. O2 saturation: 100%. Temp: 97.3 F. Pain level now: 7/10. Blood pressure normal. Oxygen saturation normal. Constipation (acute). INSTRUCTIONS Warnings: GENERAL WARNINGS: Return or contact your physician immediately if your condition worsens or changes unexpectedly, if not improving as expected, or if other problems arise. SPECIFICALLY, return if you develop pain, fever, vomiting, the inability to keep fluids down, blood in vomitus, blood in diarrhea, fainting or lightheadedness. Your Current Medications: CONTINUE TAKING THE FOLLOWING MEDICATIONS: OTC laxative *. Senna Laxative Oral. Spiriva HandiHaler Inhalation. Symbicort Inhalation. OTC Medications: Colace capsules (available over the counter): take according to label instructions. Magnesium Citrate (10-oz bottle) (available over the counter): take 1 bottle to achieve bowel movement. Repeat after 4 hours if needed. Follow-up: Return to the emergency department as needed. Follow up with your doctor in three days. Reason for referral: recheck today's concerns. Summary of care provided to patient via paper. Screening today revealed the patient's blood pressure to be in the normal range. The patient should follow up with a primary care provider for blood pressure management. Understanding of the discharge instructions verbalized by patient. (Electronically signed by Thomas Triplett Dr. 11/11/2016 14:26)
--- NOTE | 2016-11-04 19:52 | ED ORDER SUMMARY ---
..... Patient: CAROL ANN LEMUS OrderSheet [facility] VisitID: [id number] [address] [place] [address] 71y, M Registration Date/Time: 11/04/2016 ORDER SHEET Weight: 77.1 kg (stated) Allergies: No Known Drug Allergy GENERAL ORDERS: MEDICATION ORDERS: - (enema) (17:57 11/04/2016 Indira Elise) (Ack 18:27 JBoardleestephania R.N.) (18:28 JBoarcharles R.N.) IV FLUIDS: ORDER SHEET NOTES: [Electronically signed by Maria D Martinez R.N. (21:22 11/04/2016)] [Electronically signed by Thomas Triplett Dr. (14:26 11/11/2016)] [Electronically locked/signed by Maria D Martinez R.N. (21:22 11/04/2016)]
--- NOTE | 2016-11-11 14:26 | ED DISCHARGE INSTRUCTIONS ---
Patient: CAROL ANN LEMUS General Instructions [facility] VisitID: [id number] [place] [address] 71y, M Registration Date/Time: 11/04/2016 11/04/2016 17:04 BP: 126/84. HR: 73. RR: 14. O2 saturation: 100%. Temp: 97.3 F. Pain level now: 7/10. Blood pressure normal. Oxygen saturation normal. Constipation (acute). INSTRUCTIONS Warnings: GENERAL WARNINGS: Return or contact your physician immediately if your condition worsens or changes unexpectedly, if not improving as expected, or if other problems arise. SPECIFICALLY, return if you develop pain, fever, vomiting, the inability to keep fluids down, blood in vomitus, blood in diarrhea, fainting or lightheadedness. Your Current Medications: CONTINUE TAKING THE FOLLOWING MEDICATIONS: OTC laxative *. Senna Laxative Oral. Spiriva HandiHaler Inhalation. Symbicort Inhalation. OTC Medications: Colace capsules (available over the counter): take according to label instructions. Magnesium Citrate (10-oz bottle) (available over the counter): take 1 bottle to achieve bowel movement. Repeat after 4 hours if needed. Follow-up: Return to the emergency department as needed. Follow up with your doctor in three days. Reason for referral: recheck today's concerns. Summary of care provided to patient via paper. Screening today revealed the patient's blood pressure to be in the normal range. The patient should follow up with a primary care provider for blood pressure management. Understanding of the discharge instructions verbalized by patient. ADDITIONAL INFORMATION Constipation (Adult) Constipation is bowel movements that are less frequent than usual. Stools often become very hard and difficult to pass. This may lead to abdominal pain and bloating. It may also cause painful bowel movements. Constipation may be due to a diet thats low in fiber. Some medications, especially pain medications, can also cause it. Constipation may be treated with enemas, suppositories, laxatives or stool softeners. Your doctor will advise you which will work best for you. Follow the advice below to help avoid this problem in the future. Home Care Medication: Take any medicines as directed. Some laxatives are safe only for occasional use. Others can be taken on a regular basis. Talk to your doctor or pharmacist if you have questions. General Care: Prescription pain medications can cause constipation. If you are prescribed pain medications, ask the doctor whether you should also take a stool softener. A diet high in fiber with plenty of fluids helps to maintain regular, soft bowel movements. The following foods are good sources of dietary fiber: Cereals and breads: Whole grain cereal with bran, oatmeal, rolled oats, whole grain breads Fruits: All fruits (fresh and dried), raisins, prunes, apricots, berries, figs Vegetables: Any fresh vegetables, especially peas, broccoli, brussels sprouts, winter squash, green beans, cauliflower, schafer beans, carrots Other: Popcorn, brown rice Drink plenty of water when you increase the amount of fiber you eat. Follow Up with your doctor or return to this facility if symptoms do not improve in the next few days. You may require further tests or a referral to a specialist. Get Prompt Medical Attention if any of the following occur: Fever over 100.4F (38C) Failure to resume normal bowel movements Increasing abdominal or back pain Nausea or vomiting Abdominal swelling Blood in the stool Weakness, dizziness or fainting Unexpected vaginal bleeding You have been given the following additional information: Constipation (Adult) (Electronically signed by Thomas Triplett Dr. 11/11/2016 14:26)
--- NOTE | 2016-11-11 14:26 | ED MAR SUMMARY ---
..... Medication Administration Record [facility] [address] [place] [address] Patient: CAROL ANN LEMUS Visit ID: [id number] 71y, M Weight: 77.1 kg Height/Length: 72 in BMI: 23.1 ALLERGIES: No Known Drug Allergy Given 18:23 11/04/2016 Johnny Desouza RKandiNKandi Medication Administered: Milk of Molasses *, Dose: 100 mLs * IL. Medication Ordered: - (enema).
--- NOTE | 2016-11-11 14:26 | ED MAR SUMMARY ---
..... Medication Administration Record [facility] [address] [place] [address] Patient: CAROL ANN LEMUS Visit ID: [id number] 71y, M Weight: 77.1 kg Height/Length: 72 in BMI: 23.1 ALLERGIES: No Known Drug Allergy Given 18:23 11/04/2016 Johnny Desouza RKandiNKandi Medication Administered: Milk of Molasses *, Dose: 100 mLs * CT. Medication Ordered: - (enema).
--- NOTE | 2016-11-11 14:26 | ED MED RECONCILIATION SUMMARY ---
Patient: CAROL ANN LEMUS Medication Reconciliation Report [facility] VisitID: [id number] [address] [place] [address] 71y, M Registration Date/Time: 11/04/2016 Weight: 77.1 kg Height/Length: 72 in. BMI: 23.1 ALLERGIES: No Known Drug Allergy The patient's Home Medications are listed below: CONTINUE TAKING THE FOLLOWING MEDICATIONS: OTC laxative Senna Laxative Oral Spiriva HandiHaler Inhalation Symbicort Inhalation The source(s) of the original Home Medication information: patient EMS The following Medications were given to the patient in the Emergency Department: Milk of Molasses CT 100 mLs, administered: 11/04/2016 6:23:00 PM The following Medications were prescribed to the patient: Colace capsules (available over the counter): take according to label instructions. -- Thomas Triplett Dr. Magnesium Citrate (10-oz bottle) (available over the counter): take 1 bottle to achieve bowel movement. Repeat after 4 hours if needed. -- Thomas Triplett Dr.
--- NOTE | 2016-11-11 14:26 | ED MED RECONCILIATION SUMMARY ---
Patient: CAROL ANN LEMUS Medication Reconciliation Report [facility] VisitID: [id number] [address] [place] [address] 71y, M Registration Date/Time: 11/04/2016 Weight: 77.1 kg Height/Length: 72 in. BMI: 23.1 ALLERGIES: No Known Drug Allergy The patient's Home Medications are listed below: CONTINUE TAKING THE FOLLOWING MEDICATIONS: OTC laxative Senna Laxative Oral Spiriva HandiHaler Inhalation Symbicort Inhalation The source(s) of the original Home Medication information: patient EMS The following Medications were given to the patient in the Emergency Department: Milk of Molasses [place] 100 mLs, administered: 11/04/2016 6:23:00 PM The following Medications were prescribed to the patient: Colace capsules (available over the counter): take according to label instructions. -- Thomas Triplett Dr. Magnesium Citrate (10-oz bottle) (available over the counter): take 1 bottle to achieve bowel movement. Repeat after 4 hours if needed. -- Thomas Triplett Dr.
== END 2016-11-04 21:00 | disposition home or self-care (01) ==
LOC: ED SRH 16:59
DX: K59.00 Constipation, unspecified (principal); J44.9 Chronic obstructive pulmonary disease, unspecified; Z79.52 Long term (current) use of systemic steroids; Z79.899 Other long term (current) drug therapy

== ENCOUNTER 2017-03-05 01:29 | Emergency (ER) | payer OTHER ==
--- NOTE | 2017-03-05 03:05 | ED NURSING NOTES ---
Clinical Report - Nurses [facility] [address] [place] [address] 03/05/2017 1:29 Patient: CAROL ANN LEMUS TRIAGE Triage time 01:30. Acuity: LEVEL 3. Chief Complaint: DIFFICULTY BREATHING. 01:47 03/05/17. Alert. No acute distress. SEPSIS SCREEN: Sepsis Screen. Negative (no infection suspected/documented). MAUREEN COMA SCORE: Maureen Coma Scale: 15- eyes open spontaneously (4); best verbal response- oriented x 4 (5); best motor response- obeys commands (6). --01:47 Skylar Darling R.N. 01:34 03/05/17. BP: 148/80. HR: 87. RR: 24. O2 saturation: 95% on room air. Temp: 97.6 F. Pain level now: 0/10. --01:47 Skylar Darling R.N. Weight: 68 kg estimated. Height/Length: 72 inches Per Patient. BMI: 20.3. --01:46 Skylar Darling R.N. Medications OTC laxative . Senna Laxative Oral. Spiriva HandiHaler Inhalation. Symbicort Inhalation. --02:01 Skylar Darling R.N. Allergies No Known Drug Allergy. --02:01 Skylar Darling R.N. History Arrived by EMS. Historian: EMS and patient. Primary physician (Dr Hinton). This is a [facility]. [facility] He has had a cough and wheezing. Treatment INTERNIST: (home nebulizer). EMS treatment INTERNIST verbally communicated. Oxygen administered by nasal cannula and at 2 liters/minute. Pulse oximeter applied. BP: 160 / 84. HR: 88. O2 saturation: 90 room air. ( Patient 90% on RA when EMS arrived. When 2L O2 nasal cannula applied, O2 at 94%). PAST MEDICAL HX: Chronic obstructive pulmonary disease. Immunizations: up-to-date. SOCIAL HX: Never smoker. Occasional alcohol use. No drug use. NUTRITIONAL RISK ASSESSMENT: The nutritional risk assessment revealed no deficiencies. FUNCTIONAL ASSESSMENT: Functional assessment: no impairments noted. LEARNING NEEDS ASSESSMENT: The learning needs assessment revealed no barriers. FALL RISK ASSESSMENT: Fall risk assessment completed. Risk factors identified include patient age greater than 65 years. Fall interventions initiated. Side rails up x2. Brakes on Bed in low position. Patient visible from nurses' station. Call light in reach of patient. Instructed not to get up without assistance. SKIN INTEGRITY ASSESSMENT: Skin integrity risk assessment completed. No skin integrity risk identified. --01:47 Skylar Darling R.N. <<STRICKEN ENTRY-- SOCIAL HX: Smoker- current status unknown. --02:02 Skylar Darling R.N. --END STRIKE>> Correction --02:02 Skylar Darling R.N. SOCIAL HX: Former smoker, end date 2001. --02:02 Skylar Darling R.N. PROBLEMS: Pedal Edema. BPH. UTI - Urinary Tract Infection. Urine retention . Abdominal Pain. Lewy Body Disease. Fecal Impaction. Immunizations. Weight loss of 25-30 lb in over last year. . Constipation. --02:01 Skylar Darling R.N. ADDITIONAL SURGERIES: Hernia Repair. Tonsillectomy. --02:01 Skylar Darling R.N. Interventions ID band on patient. To treatment room. --01:47 Skylar Darling R.N. PHYSICAL ASSESSMENT 01:48 03/05/17. To room via stretcher. GENERAL / NEURO / PSYCH: Alert. Oriented X 4. Appears in no acute distress. RESPIRATORY: Mild respiratory distress. The patient can speak a few words at a time. Clavicular accessory muscle use. Wheezes in the right upper lung anteriorly. CVS: Capillary refill less than 2 seconds. GI / : Abdomen soft and nontender. SKIN: Skin is warm and dry. --01:48 Skylar Darling R.N. NURSING PROGRESS NOTES 01:35 03/05/2017 Site #1 started via IV in the left forearm with an 20g angiocath; one attempt. Blood drawn: rainbow set. Labeled in the presence of the patient and sent to the lab. Saline lock flushed with 5 mL saline. --02:12 Phong, Skylar, R.N. <<STRICKEN ENTRY-- 01:50 03/05/2017 Site #1 started via IV in the left forearm with an 20g angiocath; one attempt. Blood drawn: rainbow set. Labeled in the presence of the patient and sent to the lab. Saline lock flushed with 5 mL saline. --02:12 Skylar Darling R.N. --END STRIKE>> Correction. --02:12 Skylar Darling R.N. 01:58 03/05/2017 SOLU-MEDROL (MethylPREDNISolone Sodium Succ) IVP 125 mg given over 2 minute(s) via site #1. Allergies verified and confirmed 5 rights. IV patency established. IV site checked: no pain, redness, or swelling. IV flushed thoroughly pre- and post-medication administration. IVP given by RN. --02:13 Skylar Darling R.N. 02:01 03/05/17. box sealing machine feeder, pulse oximeter and NIBP monitor placed on patient. Patient gowned. Head of bed elevated. Two patient identifiers checked. Call light placed in reach. Side rails up x 2. Bed placed in lowest position. Brakes of bed on. --02:01 Skylar Darling R.N. EKG time: (0206). EKG was performed by a tech and shown to the ED physician. --02:14 Cira Crump ( Patient attempted to urinate, but was unable. Patient aware he needs to provide urine. He is now resting and watching tv in room.). --02:29 Skylar Darling R.N. 02:30 03/05/2017 SOLU-MEDROL IVP Response: no adverse reaction symptoms have improved the patient feels better. 03/05/2017 02:30 BP: 104/60. HR: 76. RR: 17. O2 saturation: 90%. Pain level now: 0/10. --05:40 Skylar Darling R.N. 02:56 03/05/2017 Albuterol Neb TX Nebulizer 1 unit dose given. Given by the respiratory therapist. Allergies verified and confirmed 5 rights. --02:56 Skylar Darling R.N. DISPOSITION / DISCHARGE 03:00 03/05/17. BP: 111/49 taken on the right arm, while sitting. HR: 83. RR: 18. O2 saturation: 93%. Temp: deferred. Pain level now: 0/10. --03:27 Skylar Darling R.N. 01:45 03/05/2017 Duoneb Neb TX Response: no adverse reaction symptoms have improved. 03/05/2017 01:45 HR: 85. RR: 21. O2 saturation: 100%. --05:39 Skylar Darling R.N. 03:00 03/05/2017 Albuterol Neb TX Response: no adverse reaction symptoms have improved. 03/05/2017 03:00 BP: 111/49. HR: 83. RR: 18. O2 saturation: 93%. Pain level now: 0/10. --05:40 Skylar Darling R.N. 03:21 03/05/2017 Site #1 removed upon discharge. Manual pressure and bandaid applied. --05:38 Skylar Darling R.N. 03:23 03/05/2017 Zithromax PO Tablets 500 mg given. Allergies verified and confirmed 5 rights. --05:38 Skylar Darling R.N. 03:25 03/05/2017 Zithromax PO Response: no adverse reaction. --05:41 Skylar Darling R.N. 03:27 03/05/17. Discharge instructions provided and reviewed with the patient. Reviewed warnings. Reviewed medication(s). Treatments reviewed. Patient verbalized understanding. Written instructions provided in Azeri. The patient was discharged home and accompanied by family. He left the Emergency Department via private vehicle. Family member driving. ( Patient will wait in room until son picks him up.). --03:27 Skylar Darling R.N. Departure time: 05:37. --05:41 Skylar Darling R.N. Locked/Released at 03/05/2017 5:42 by Skylar Darling R.N.
--- NOTE | 2017-03-05 03:05 | ED ORDER SUMMARY ---
..... Patient: CAROL ANN LEMUS OrderSheet [facility] VisitID: [id number] [address] [place] [address] 72y, M Registration Date/Time: 03/05/2017 ORDER SHEET Weight: 68.0 kg (estimated) Allergies: No Known Drug Allergy GENERAL ORDERS: Chest 1V Urgent (02:00 03/05/2017 Kerry MATUTE) (Ack 2:06 AMcQuoid ER Tech1) (2:14 RMarsden R.N.) Php Mysql Web Developer (Continuous) (02:00 03/05/2017 Kerry MATUTE) (2:03 RMarsden R.N.) (Ack 2:06 AMcQuoid ER Tech1) CBC w Diff Urgent (02:03/05/2017 Kerry MATUTE) (Collected 2:03 RMarsden R.N.) (Ack 2:06 AMcQuoid ER Tech1) (2:27 RMarsden R.N.) CMP Urgent (02:00 03/05/2017 Kerry MATUTE) (Collected 2:03 RMarsden R.N.) (Ack 2:06 AMcQuoid ER Tech1) (2:27 RMarsden R.N.) UA-Culture if indicated Urgent (02:00 03/05/2017 Kerry MATUTE) (Collected 2:03 RMarsden R.N.) (Ack 2:06 AMcQuoid ER Tech1) (3:02 Kerry MATUTE) (Cancelled: Other3:02 Kerry MATUTE) Amylase Urgent (02:00 03/05/2017 Kerry MATUTE) (Collected 2:03 RMarsden R.N.) (Ack 2:06 AMcQuoid ER Tech1) (2:27 RMarsden R.N.) Lipase Urgent (02:00 03/05/2017 Kerry MATUTE) (Collected 2:03 RMarsden R.N.) (Ack 2:06 AMcQuoid ER Tech1) (2:27 RMarsden R.N.) CPK Urgent (02:00 03/05/2017 Kerry MATUTE) (Collected 2:03 RMarsden R.N.) (Ack 2:06 AMcQuoid ER Tech1) (2:27 RMarsden R.N.) Troponin-I Urgent (02:00 03/05/2017 Kerry MATUTE) (Collected 2:03 RMarsden R.N.) (Ack 2:06 AMcQuoid ER Tech1) (2:27 RMarsden R.N.) BNP Urgent (02:00 03/05/2017 Kerry MATUTE) (Collected 2:03 RMarsden R.N.) (Ack 2:06 AMcQuoid ER Tech1) (2:27 RMarsden R.N.) Pulse oximeter (02:00 03/05/2017 Kerry MATUTE) (2:03 RMarsden R.N.) (Ack 2:06 AMcQuoid ER Tech1) EKG - ER Stat (02:00 03/05/2017 Kerry MATUTE) (2:03 RMarsden R.N.) (Ack 2:06 AMcQuoid ER Tech1) MEDICATION ORDERS: DuoNeb Neb Tx 1 unit dose (NOW) (01:44 03/05/2017 Kerry MATUTE) (1:52 ASingh) Albuterol Neb Tx 1 unit dose (NOW) (02:47 03/05/2017 RMarsden R.N. verbal order read back to Kerry MATUTE) (2:56 RMarsden R.N.) Verbal order read back and verified Zithromax PO 500 mg (NOW) (03:02 03/05/2017 Kerry MATUTE) (Ack 3:11 RMarsden R.N.) (5:38 RMarsden R.N.) IV FLUIDS: Solu-MEDROL IV 125 mg (NOW) (02:00 03/05/2017 Kerry MATUTE) (Ack 2:03 RMarsden R.N.) (2:13 RMarsden R.N.) IV Saline Lock (02:00 03/05/2017 Kerry MATUTE) (Ack 2:03 RMarsden R.N.) (2:12 RMarsden R.N.) ORDER SHEET NOTES: [Electronically signed by Skylar Darling R.N. (05:42 03/05/2017)] [Electronically signed by Jean Claude Jordan MD (19:02 03/09/2017)] [Electronically locked/signed by Skylar Darling R.N. (05:42 03/05/2017)]
--- NOTE | 2017-03-05 03:05 | ED NURSING NOTES ---
Clinical Report - Nurses [facility] [address] [place] [address] 03/05/2017 1:29 Patient: CAROL ANN LEMUS TRIAGE Triage time 01:30. Acuity: LEVEL 3. Chief Complaint: DIFFICULTY BREATHING. 01:47 03/05/17. Alert. No acute distress. SEPSIS SCREEN: Sepsis Screen. Negative (no infection suspected/documented). MAUREEN COMA SCORE: Maureen Coma Scale: 15- eyes open spontaneously (4); best verbal response- oriented x 4 (5); best motor response- obeys commands (6). --01:47 Skylar Darling R.N. 01:34 03/05/17. BP: 148/80. HR: 87. RR: 24. O2 saturation: 95% on room air. Temp: 97.6 F. Pain level now: 0/10. --01:47 Skylar Darling R.N. Weight: 68 kg estimated. Height/Length: 72 inches Per Patient. BMI: 20.3. --01:46 Skylar Darling R.N. Medications OTC laxative . Senna Laxative Oral. Spiriva HandiHaler Inhalation. Symbicort Inhalation. --02:01 Skylar Darling R.N. Allergies No Known Drug Allergy. --02:01 Skylar Darling R.N. History Arrived by EMS. Historian: EMS and patient. Primary physician (Dr Hinton). This is a recurrent problem. ([facility]). He has had a cough and wheezing. Treatment PUMP OPERATOR BYPRODUCTS: (home nebulizer). EMS treatment PUMP OPERATOR BYPRODUCTS verbally communicated. Oxygen administered by nasal cannula and at 2 liters/minute. Pulse oximeter applied. BP: 160 / 84. HR: 88. O2 saturation: 90 room air. ( Patient 90% on RA when EMS arrived. When 2L O2 nasal cannula applied, O2 at 94%). PAST MEDICAL HX: Chronic obstructive pulmonary disease. Immunizations: up-to-date. SOCIAL HX: Never smoker. Occasional alcohol use. No drug use. NUTRITIONAL RISK ASSESSMENT: The nutritional risk assessment revealed no deficiencies. FUNCTIONAL ASSESSMENT: Functional assessment: no impairments noted. LEARNING NEEDS ASSESSMENT: The learning needs assessment revealed no barriers. FALL RISK ASSESSMENT: Fall risk assessment completed. Risk factors identified include patient age greater than 65 years. Fall interventions initiated. Side rails up x2. Brakes on Bed in low position. Patient visible from nurses' station. Call light in reach of patient. Instructed not to get up without assistance. SKIN INTEGRITY ASSESSMENT: Skin integrity risk assessment completed. No skin integrity risk identified. --01:47 Skylar Darling R.N. <<STRICKEN ENTRY-- SOCIAL HX: Smoker- current status unknown. --02:02 Skylar Darling R.N. --END STRIKE>> Correction --02:02 Skylar Darling R.N. SOCIAL HX: Former smoker, end date 2001. --02:02 Skylar Darling R.N. PROBLEMS: Pedal Edema. BPH. UTI - Urinary Tract Infection. Urine retention . Abdominal Pain. Lewy Body Disease. Fecal Impaction. Immunizations. Weight loss of 25-30 lb in over last year. . Constipation. --02:01 Skylar Darling R.N. ADDITIONAL SURGERIES: Hernia Repair. Tonsillectomy. --02:01 Skylar Darling R.N. Interventions ID band on patient. To treatment room. --01:47 Skylar Darling R.N. PHYSICAL ASSESSMENT 01:48 03/05/17. To room via stretcher. GENERAL / NEURO / PSYCH: Alert. Oriented X 4. Appears in no acute distress. RESPIRATORY: Mild respiratory distress. The patient can speak a few words at a time. Clavicular accessory muscle use. Wheezes in the right upper lung anteriorly. CVS: Capillary refill less than 2 seconds. GI / : Abdomen soft and nontender. SKIN: Skin is warm and dry. --01:48 Skylar Darling R.N. NURSING PROGRESS NOTES 01:35 03/05/2017 Site #1 started via IV in the left forearm with an 20g angiocath; one attempt. Blood drawn: rainbow set. Labeled in the presence of the patient and sent to the lab. Saline lock flushed with 5 mL saline. --02:12 Phong, Skylar, R.N. <<STRICKEN ENTRY-- 01:50 03/05/2017 Site #1 started via IV in the left forearm with an 20g angiocath; one attempt. Blood drawn: rainbow set. Labeled in the presence of the patient and sent to the lab. Saline lock flushed with 5 mL saline. --02:12 Skylar Darling R.N. --END STRIKE>> Correction. --02:12 Skylar Darling R.N. 01:58 03/05/2017 SOLU-MEDROL (MethylPREDNISolone Sodium Succ) IVP 125 mg given over 2 minute(s) via site #1. Allergies verified and confirmed 5 rights. IV patency established. IV site checked: no pain, redness, or swelling. IV flushed thoroughly pre- and post-medication administration. IVP given by RN. --02:13 Skylar Darling R.N. 02:01 03/05/17. lunchroom monitor, pulse oximeter and NIBP monitor placed on patient. Patient gowned. Head of bed elevated. Two patient identifiers checked. Call light placed in reach. Side rails up x 2. Bed placed in lowest position. Brakes of bed on. --02:01 Skylar Darling R.N. EKG time: (0206). EKG was performed by a tech and shown to the ED physician. --02:14 Cira Crump ( Patient attempted to urinate, but was unable. Patient aware he needs to provide urine. He is now resting and watching tv in room.). --02:29 Skylar Darling R.N. 02:30 03/05/2017 SOLU-MEDROL IVP Response: no adverse reaction symptoms have improved the patient feels better. 03/05/2017 02:30 BP: 104/60. HR: 76. RR: 17. O2 saturation: 90%. Pain level now: 0/10. --05:40 Skylar Darling R.N. 02:56 03/05/2017 Albuterol Neb TX Nebulizer 1 unit dose given. Given by the respiratory therapist. Allergies verified and confirmed 5 rights. --02:56 Skylar Darling R.N. DISPOSITION / DISCHARGE 03:00 03/05/17. BP: 111/49 taken on the right arm, while sitting. HR: 83. RR: 18. O2 saturation: 93%. Temp: deferred. Pain level now: 0/10. --03:27 Skylar Darling R.N. 01:45 03/05/2017 Duoneb Neb TX Response: no adverse reaction symptoms have improved. 03/05/2017 01:45 HR: 85. RR: 21. O2 saturation: 100%. --05:39 Skylar Darling R.N. 03:00 03/05/2017 Albuterol Neb TX Response: no adverse reaction symptoms have improved. 03/05/2017 03:00 BP: 111/49. HR: 83. RR: 18. O2 saturation: 93%. Pain level now: 0/10. --05:40 Skylar Darling R.N. 03:21 03/05/2017 Site #1 removed upon discharge. Manual pressure and bandaid applied. --05:38 Skylar Darling R.N. 03:23 03/05/2017 Zithromax PO Tablets 500 mg given. Allergies verified and confirmed 5 rights. --05:38 Skylar Darling R.N. 03:25 03/05/2017 Zithromax PO Response: no adverse reaction. --05:41 Skylar Darling R.N. 03:27 03/05/17. Discharge instructions provided and reviewed with the patient. Reviewed warnings. Reviewed medication(s). Treatments reviewed. Patient verbalized understanding. Written instructions provided in Luxembourgish. The patient was discharged home and accompanied by family. He left the Emergency Department via private vehicle. Family member driving. ( Patient will wait in room until son picks him up.). --03:27 Skylar Darling R.N. Departure time: 05:37. --05:41 Skylar Darling R.N. Locked/Released at 03/05/2017 5:42 by Skylar Darling R.N.
--- NOTE | 2017-03-05 03:05 | ED ORDER SUMMARY ---
..... Patient: CAROL ANN LEMUS OrderSheet [facility] VisitID: [id number] [address] [place] [address] 72y, M Registration Date/Time: 03/05/2017 ORDER SHEET Weight: 68.0 kg (estimated) Allergies: No Known Drug Allergy GENERAL ORDERS: Chest 1V Urgent (02:00 03/05/2017 Kerry MATUTE) (Ack 2:06 AMcQuoid ER Tech1) (2:14 RMarsden R.N.) Extension Specialist (Continuous) (02:00 03/05/2017 Kerry MATUTE) (2:03 RMarsden R.N.) (Ack 2:06 AMcQuoid ER Tech1) CBC w Diff Urgent (02:03/05/2017 Kerry MATUTE) (Collected 2:03 RMarsden R.N.) (Ack 2:06 AMcQuoid ER Tech1) (2:27 RMarsden R.N.) CMP Urgent (02:00 03/05/2017 Kerry MATUTE) (Collected 2:03 RMarsden R.N.) (Ack 2:06 AMcQuoid ER Tech1) (2:27 RMarsden R.N.) UA-Culture if indicated Urgent (02:00 03/05/2017 Kerry MATUTE) (Collected 2:03 RMarsden R.N.) (Ack 2:06 AMcQuoid ER Tech1) (3:02 Kerry MATUTE) (Cancelled: Other3:02 Kerry MATUTE) Amylase Urgent (02:00 03/05/2017 Kerry MATUTE) (Collected 2:03 RMarsden R.N.) (Ack 2:06 AMcQuoid ER Tech1) (2:27 RMarsden R.N.) Lipase Urgent (02:00 03/05/2017 Kerry MATUTE) (Collected 2:03 RMarsden R.N.) (Ack 2:06 AMcQuoid ER Tech1) (2:27 RMarsden R.N.) CPK Urgent (02:00 03/05/2017 Kerry MATUTE) (Collected 2:03 RMarsden R.N.) (Ack 2:06 AMcQuoid ER Tech1) (2:27 RMarsden R.N.) Troponin-I Urgent (02:00 03/05/2017 Kerry MATUTE) (Collected 2:03 RMarsden R.N.) (Ack 2:06 AMcQuoid ER Tech1) (2:27 RMarsden R.N.) BNP Urgent (02:00 03/05/2017 Kerry MATUTE) (Collected 2:03 RMarsden R.N.) (Ack 2:06 AMcQuoid ER Tech1) (2:27 RMarsden R.N.) Pulse oximeter (02:00 03/05/2017 Kerry MATUTE) (2:03 RMarsden R.N.) (Ack 2:06 AMcQuoid ER Tech1) EKG - ER Stat (02:00 03/05/2017 Kerry MATUTE) (2:03 RMarsden R.N.) (Ack 2:06 AMcQuoid ER Tech1) MEDICATION ORDERS: DuoNeb Neb Tx 1 unit dose (NOW) (01:44 03/05/2017 Kerry MATUTE) (1:52 ASingh) Albuterol Neb Tx 1 unit dose (NOW) (02:47 03/05/2017 RMarsden R.N. verbal order read back to Kerry MATUTE) (2:56 RMarsden R.N.) Verbal order read back and verified Zithromax PO 500 mg (NOW) (03:02 03/05/2017 Kerry MATUTE) (Ack 3:11 RMarsden R.N.) (5:38 RMarsden R.N.) IV FLUIDS: Solu-MEDROL IV 125 mg (NOW) (02:00 03/05/2017 Kerry MATUTE) (Ack 2:03 RMarsden R.N.) (2:13 RMarsden R.N.) IV Saline Lock (02:00 03/05/2017 Kerry MATUTE) (Ack 2:03 RMarsden R.N.) (2:12 RMarsden R.N.) ORDER SHEET NOTES: [Electronically signed by Skylar Darling R.N. (05:42 03/05/2017)] [Electronically signed by Jean Claude Jordan MD (19:02 03/09/2017)] [Electronically locked/signed by Skylar Darling R.N. (05:42 03/05/2017)]
--- NOTE | 2017-03-05 03:05 | ED CLINICAL REPORT ---
Clinical Report - Physicians/Mid Levels [facility] [address] [place] [address] 03/05/2017 1:29 Patient: CAROL ANN LEMUS Time Seen: 01:38. Arrived- By ambulance. Historian- patient and EMS personnel. HISTORY OF PRESENT ILLNESS Chief Complaint: HISTORY OF CHRONIC OBSTRUCTIVE PULMONARY DISEASE. This started today and is still present and worsening. It was gradual in onset and has been constant. The dyspnea is severe. The patient has had a cough, wheezing and dyspnea on exertion. No sputum production, fever, sweating episodes or chills. No chest pain or discomfort, calf pain or foot swelling. Similar symptoms previously: Several times. Diagnosis: chronic obstructive pulmonary disease. REVIEW OF SYSTEMS No chills, fever, sweats, calf pain or chest pain. No pedal edema, palpitations, abdominal pain, constipation or diarrhea. No nausea, vomiting or urinary problems. All systems otherwise negative, except as recorded above. PAST HISTORY PCP - JEN SKELTON. SOCIAL HISTORY Never smoker. Occasional alcohol use. No drug use. FAMILY HISTORY Denies family medical history. ADDITIONAL NOTES The nursing notes have been reviewed. PHYSICAL EXAM Vital Signs: Have been reviewed. Appearance: Alert. Eyes: Pupils equal, round and reactive to light. ENT: Pharynx normal. Neck: Normal inspection. CVS: Normal heart rate and rhythm. Heart sounds normal. Respiratory: Decreased air movement. Wheezing present. Abdomen: Soft and nontender. No organomegaly. Back: Normal inspection. Skin: Skin warm and dry. Normal skin color. Normal skin turgor. Extremities: Extremities exhibit normal ROM. No lower extremity edema. LABS, X-RAYS, AND EKG EKG: Rate: 84. Non-specific ST segment / T wave abnormalities. Prior EKG unavailable. The study has been independently viewed by me. Chest X-ray: Hyperinflation present. The X-rays were independently viewed by me. Laboratory Tests: CBC w Diff: (WILY: 03/05/2017 01:40) ( MsgRcvd 03/05/2017 02:18) Final results Test Result Flag Units (Reference) WHITE BLOOD COUNT 10.2 K/uL (4.5-11.5) RED BLOOD COUNT 4.50 M/uL (4.50-5.90) HEMOGLOBIN 13.4 L gm/dL (13.5-17.5) HEMATOCRIT 40.9 L % (41.0-53.0) MEAN CELL VOLUME 91 fL (80-100) MEAN CORPUSCULAR HGB 30 pg (26-34) MEAN CORPUSCULAR HGB CONC 33 g/dL (31-37) RED CELL DISTRIBUTION WIDTH 14.9 H % (11.6-14.8) PLATELET COUNT 289 K/uL (150-400) NEUTROPHIL % 79.4 H % (50-75) LYMPH % 12.1 L % (25-40) MONO % 5.9 % (3-14) EOSINOPHIL % 2.1 % (0-4) BASOPHIL % 0.5 % (0-2) BNP: (WILY: 03/05/2017 01:40) ( [facility] 03/05/2017 02:28) Final results Test Result Flag Units (Reference) B-TYPE NATRIURETIC PEPTIDE 50.1 pg/ml (5-100) CMP: (WILY: 03/05/2017 01:40) ( [facility] 03/05/2017 02:25) Final results Test Result Flag Units (Reference) GLUCOSE 109 mg/dL (70-110) BUN 31 H mg/dL (7-18) CREATININE 0.9 mg/dL (0.6-1.3) Estimated GFR >60 mL/min Estimated GFR- >60 mL/min Note: Persistent reduction over 3 months in eGFR<60 mL/min/1.73 m2 defines CKD. Patients with eGFR values>=60 mL/min/1.73 m2 may also have CKD if evidence ofpersistent proteinuria. Additional information may be foundat www.kidney.org. SODIUM 141 mmol/L (136-145) POTASSIUM 4.0 mmol/L (3.5-5.1) CHLORIDE 107 mmol/L (98-107) CARBON DIOXIDE 30 mmol/L (21-32) CALCIUM 8.9 mg/dL (8.5-10.1) TOTAL PROTEIN 8.4 H g/dL (6.4-8.2) ALBUMIN 3.6 g/dL (3.3-5.0) BILIRUBIN, TOTAL 0.3 mg/dL (0.0-1.0) ALKALINE PHOSPHATASE 66 U/L (46-116) AST (SGOT) 21 U/L (15-37) ALT (SGPT) 24 U/L (12-78) LIPASE 55 L U/L (73-393) AMYLASE 34 U/L (25-115) CPK 126 U/L (24-260) TROPONIN I <0.05 ng/mL (0.00-1.5) TROPONIN REFERENCE RANGE:<0.1 NEGATIVE0.1-1.5 INDETERMINANT>1.5 POSITIVE . PROGRESS AND PROCEDURES Course of Care: Symptoms better. Vital signs have been reviewed. Physical exam findings are improved. Alert. No acute distress. Breath sounds normal. No respiratory distress. Normal heart rate and rhythm. Heart sounds normal. Abdomen soft and nontender. Skin warm and dry. Patient/family counseled. Old medical records reviewed. Disposition: Discharged. Condition: stable. CLINICAL IMPRESSION Acute exacerbation of COPD. INSTRUCTIONS Warnings: Further evaluation is necessary. GENERAL WARNINGS: Return or contact your physician immediately if your condition worsens or changes unexpectedly, if not improving as expected, or if other problems arise. Your Current Medications: CONTINUE TAKING THE FOLLOWING MEDICATIONS: OTC laxative *. Senna Laxative Oral. Spiriva HandiHaler Inhalation. Symbicort Inhalation. Prescription Medications: Albuterol HFA oral inhaler: inhale 2 puffs via spacer every 4 hours as needed for wheezing, difficulty breathing or shortness of breath. Dispense one (1) unit. No refill. Prednisone 20 mg: take 3 orally every day for 5 days. Dispense fifteen (15). No refills. Zithromax 250 mg tablets: take 1 orally every day for 4 days. Total course 5 days. No refills. Substitution is permissible. (to complete the course started in the ER; 4 pills) Follow-up: Follow up with your doctor JEN SKELTON in five days. Call for the next available appointment. Understanding of the discharge instructions verbalized by patient. (Electronically signed by Jean Claude Jordan MD 03/09/2017 19:02)
--- NOTE | 2017-03-05 06:45 | DIAGNOSTIC IMAGING REPORT ---
PROCEDURE: XR CHEST 1 VIEW INDICATION: SHORTNESS OF BREATH TECHNIQUE: Portable AP view 02:11 a.m. COMPARISON: None. FINDINGS: Hyperinflation. Biapical pleural parenchymal scarring. Heart and mediastinum are normal. Thorax is normal. IMPRESSION: 1. Hyperinflation.
--- NOTE | 2017-03-09 19:02 | ED DISCHARGE INSTRUCTIONS ---
Patient: CAROL ANN LEMUS General Instructions [facility] VisitID: [id number] [address] [place] [address] 72y, M Registration Date/Time: 03/05/2017 Acute exacerbation of COPD. INSTRUCTIONS Warnings: Further evaluation is necessary. GENERAL WARNINGS: Return or contact your physician immediately if your condition worsens or changes unexpectedly, if not improving as expected, or if other problems arise. Your Current Medications: CONTINUE TAKING THE FOLLOWING MEDICATIONS: OTC laxative *. Senna Laxative Oral. Spiriva HandiHaler Inhalation. Symbicort Inhalation. Prescription Medications: Albuterol HFA oral inhaler: inhale 2 puffs via spacer every 4 hours as needed for wheezing, difficulty breathing or shortness of breath. Dispense one (1) unit. No refill. Prednisone 20 mg: take 3 orally every day for 5 days. Dispense fifteen (15). No refills. Zithromax 250 mg tablets: take 1 orally every day for 4 days. Total course 5 days. No refills. Substitution is permissible. (to complete the course started in the ER; 4 pills) Follow-up: Follow up with your doctor JEN SKELTON in five days. Call for the next available appointment. Understanding of the discharge instructions verbalized by patient. ADDITIONAL INFORMATION COPD Flare Both emphysema and chronic bronchitis are forms of chronic obstructive pulmonary disease (COPD). It is most often caused by many years of smoking tobacco. Many things can make your lung disease suddenly get worse. These causes include the common cold, pneumonia, acute bronchitis, missing doses of your regular breathing medicines, or being around smoke, dust, or other air pollutants. A COPD flare may last 7 to 14 days. Your doctor may prescribe medicineto relax your airways and prevent wheezing. Your doctor may also prescribe antibiotics if he or she thinks you havea bacterial infection. Prednisone can helpease inflammation in a severe attack. Home care Here are things you can do at home: Drink lots of water or other fluids (at least 10 glasses a day) during an attack. This will loosen lung secretions and make it easier to breathe. If you have heart or kidney disease, check with your doctor before you drink extra amounts of fluids. Take prescribed medicine exactly at the times advised. If you have a hand-held inhaler or aerosol breathing medicine, don't use it more than once every 4 hours, unless your doctor tells you to. If you were givenan antibiotic or prednisone, take all of the medicine even if you are feeling better after a few days. Don't smoke. Avoid being aroundthe smoke of others. If you were given an inhaler, use it exactly as directed. If you need to use it more often than prescribed, your condition may be getting worse. Call your doctor. Follow-up care Follow up with your health care provider.If you are 65 or older or have chronic asthma or COPD, you should get a single dose of the pneumococcal vaccine and aflu shot each year. You may need a second dose of the pneumococcal vaccine if you had the first dose at a younger age. Your health care provider will let you know if you need a second dose. For all other people, the usual dose for the pneumococcal vaccine is 1 or 2 shots. Yourprovider can discuss this with you. When to seek medical care Get prompt medical attention ifany of these occur: Increased wheezing or shortness of breath Need to use your inhalers more often than usual without relief Fever of 100.4F(38C) or higher, or as directed by your health care provider Coughing up lots of dark-colored or bloody sputum (mucus) Chest pain with each breath You do not start to improve within 24 hours Albuterol Sulfate Pressurized inhalation, suspension What is this medicine? ALBUTEROL (al BYOO ter ole) is a bronchodilator. It helps open up the airways in your lungs to make it easier to breathe. This medicine is used to treat and to prevent bronchospasm. How should I use this medicine? This medicine is for inhalation through the mouth. Follow the directions on your prescription label. Take your medicine at regular intervals. Do not use more often than directed. Make sure that you are using your inhaler correctly. Ask you doctor or health care provider if you have any questions. Talk to your mushroom laborer regarding the use of this medicine in children. Special care may be needed. What side effects may I notice from receiving this medicine? Side effects that you should report to your doctor or health direct support professional caregiver as soon as possible: allergic reactions like skin rash, itching or hives, swelling of the face, lips, or tongue breathing problems chest pain feeling faint or lightheaded, falls high blood pressure irregular heartbeat fever muscle cramps or weakness pain, tingling, numbness in the hands or feet vomiting Side effects that usually do not require medical attention (report to your doctor or health direct support professional caregiver if they continue or are bothersome): cough difficulty sleeping headache nervousness or trembling stomach upset stuffy or runny nose throat irritation unusual taste What may interact with this medicine? anti-infectives like chloroquine and pentamidine caffeine cisapride diuretics medicines for colds medicines for depression or for emotional or psychotic conditions medicines for weight loss including some herbal products methadone some antibiotics like clarithromycin, erythromycin, levofloxacin, and linezolid some heart medicines steroid hormones like dexamethasone, cortisone, hydrocortisone theophylline thyroid hormones What if I miss a dose? If you miss a dose, use it as soon as you can. If it is almost time for your next dose, use only that dose. Do not use double or extra doses. Where should I keep my medicine? Keep out of the reach of children. Store at room temperature between 15 and 30 degrees C (59 and 86 degrees F). The contents are under pressure and may burst when exposed to heat or flame. Do not freeze. This medicine does not work as well if it is too cold. Throw away any unused medicine after the expiration date. Inhalers need to be thrown away after the labeled number of puffs have been used or by the expiration date; whichever comes first. Ventolin HFA should be thrown away 12 months after removing from foil pouch. Check the instructions that come with your medicine. What should I tell my health care provider before I take this medicine? They need to know if you have any of the following conditions: diabetes heart disease or irregular heartbeat high blood pressure pheochromocytoma seizures thyroid disease an unusual or allergic reaction to albuterol, levalbuterol, sulfites, other medicines, foods, dyes, or preservatives or trying to get breast-feeding What should I watch for while using this medicine? Tell your doctor or health direct support professional caregiver if your symptoms do not improve. Do not use extra albuterol. If your asthma or bronchitis gets worse while you are using this medicine, call your doctor right away. If your mouth gets dry try chewing sugarless gum or sucking hard candy. Drink water as directed. Prednisone Oral tablet What is this medicine? PREDNISONE (PRED ni sone) is a corticosteroid. It is commonly used to treat inflammation of the skin, joints, lungs, and other organs. Common conditions treated include asthma, allergies, and arthritis. It is also used for other conditions, such as blood disorders and diseases of the adrenal glands. How should I use this medicine? Take this medicine by mouth with a glass of water. Follow the directions on the prescription label. Take this medicine with food. If you are taking this medicine once a day, take it in the morning. Do not take more medicine than you are told to take. Do not suddenly stop taking your medicine because you may develop a severe reaction. Your doctor will tell you how much medicine to take. If your doctor wants you to stop the medicine, the dose may be slowly lowered over time to avoid any side effects. Talk to your mushroom laborer regarding the use of this medicine in children. Special care may be needed. What side effects may I notice from receiving this medicine? Side effects that you should report to your doctor or health direct support professional caregiver as soon as possible: allergic reactions like skin rash, itching or hives, swelling of the face, lips, or tongue changes in emotions or moods changes in vision depressed mood eye pain fever or chills, cough, sore throat, pain or difficulty passing urine increased thirst swelling of ankles, feet Side effects that usually do not require medical attention (report to your doctor or health direct support professional caregiver if they continue or are bothersome): confusion, excitement, restlessness headache nausea, vomiting skin problems, acne, thin and shiny skin trouble sleeping weight gain What may interact with this medicine? Do not take this medicine with any of the following medications: metyrapone mifepristone This medicine may also interact with the following medications: aminoglutethimide amphotericin B aspirin and aspirin-like medicines barbiturates certain medicines for diabetes, like glipizide or glyburide cholestyramine cholinesterase inhibitors cyclosporine digoxin diuretics ephedrine female hormones, like estrogens and control pills isoniazid ketoconazole NSAIDS, medicines for pain and inflammation, like ibuprofen or naproxen phenytoin rifampin toxoids vaccines warfarin What if I miss a dose? If you miss a dose, take it as soon as you can. If it is almost time for your next dose, talk to your doctor or health direct support professional caregiver. You may need to miss a dose or take an extra dose. Do not take double or extra doses without advice. Where should I keep my medicine? Keep out of the reach of children. Store at room temperature between 15 and 30 degrees C (59 and 86 degrees F). Protect from light. Keep container tightly closed. Throw away any unused medicine after the expiration date. What should I tell my health care provider before I take this medicine? They need to know if you have any of these conditions: Sirena's syndrome diabetes glaucoma heart disease high blood pressure infection (especially a virus infection such as chickenpox, cold sores, or herpes) kidney disease liver disease mental illness myasthenia gravis osteoporosis seizures stomach or intestine problems thyroid disease an unusual or allergic reaction to lactose, prednisone, other medicines, foods, dyes, or preservatives or trying to get breast-feeding What should I watch for while using this medicine? Visit your doctor or health direct support professional caregiver for regular checks on your progress. If you are taking this medicine over a prolonged period, carry an identification card with your name and address, the type and dose of your medicine, and your doctor's name and address. This medicine may increase your risk of getting an infection. Tell your doctor or health direct support professional caregiver if you are around anyone with measles or chickenpox, or if you develop sores or blisters that do not heal properly. If you are going to have surgery, tell your doctor or health direct support professional caregiver that you have taken this medicine within the last twelve months. Ask your doctor or health direct support professional caregiver about your diet. You may need to lower the amount of salt you eat. This medicine may affect blood sugar levels. If you have diabetes, check with your doctor or health direct support professional caregiver before you change your diet or the dose of your diabetic medicine. Azithromycin Oral tablet What is this medicine? AZITHROMYCIN (az ith tammie MYE sin) is a macrolide antibiotic. It is used to treat or prevent certain kinds of bacterial infections. It will not work for colds, flu, or other viral infections. How should I use this medicine? Take this medicine by mouth with a full glass of water. Follow the directions on the prescription label. The tablets can be taken with food or on an empty stomach. If the medicine upsets your stomach, take it with food. Take your medicine at regular intervals. Do not take your medicine more often than directed. Take all of your medicine as directed even if you think your are better. Do not skip doses or stop your medicine early. Talk to your mushroom laborer regarding the use of this medicine in children. Special care may be needed. What side effects may I notice from receiving this medicine? Side effects that you should report to your doctor or health direct support professional caregiver as soon as possible: allergic reactions like skin rash, itching or hives, swelling of the face, lips, or tongue confusion, nightmares or hallucinations dark urine difficulty breathing hearing loss irregular heartbeat or chest pain pain or difficulty passing urine redness, blistering, peeling or loosening of the skin, including inside the mouth white patches or sores in the mouth yellowing of the eyes or skin Side effects that usually do not require medical attention (report to your doctor or health direct support professional caregiver if they continue or are bothersome): diarrhea dizziness, drowsiness headache stomach upset or vomiting tooth discoloration vaginal irritation What may interact with this medicine? Do not take this medicine with any of the following medications: lincomycin This medicine may also interact with the following medications: amiodarone antacids cyclosporine digoxin magnesium nelfinavir phenytoin warfarin What if I miss a dose? If you miss a dose, take it as soon as you can. If it is almost time for your next dose, take only that dose. Do not take double or extra doses. Where should I keep my medicine? Keep out of the reach of children. Store at room temperature between 15 and 30 degrees C (59 and 86 degrees F). Throw away any unused medicine after the expiration date. What should I tell my health care provider before I take this medicine? They need to know if you have any of these conditions: kidney disease liver disease irregular heartbeat or heart disease an unusual or allergic reaction to azithromycin, erythromycin, other macrolide antibiotics, foods, dyes, or preservatives or trying to get breast-feeding What should I watch for while using this medicine? Tell your doctor or health direct support professional caregiver if your symptoms do not improve. Do not treat diarrhea with over the counter products. Contact your doctor if you have diarrhea that lasts more than 2 days or if it is severe and watery. This medicine can make you more sensitive to the sun. Keep out of the sun. If you cannot avoid being in the sun, wear protective clothing and use sunscreen. Do not use sun lamps or tanning beds/booths. You have been given the following additional information: COPD Flare Albuterol Sulfate Pressurized inhalation, suspension Prednisone Oral tablet Azithromycin Oral tablet (Electronically signed by Jean Claude Jordan MD 03/09/2017 19:02)
--- NOTE | 2017-03-09 19:02 | ED MAR SUMMARY ---
..... Medication Administration Record [facility] [address] [place] [address] Patient: CAROL ANN LEMUS Visit ID: [id number] 72y, M Weight: 68.0 kg Height/Length: 72 in BMI: 20.3 ALLERGIES: No Known Drug Allergy Given 01:42 03/05/2017 Yusuf Walker, Medication Administered: DUONEB [NEB TX] (IPRATROPIUM-ALBUTEROL), Dose: 1 unit dose Nebulizer Neb TX. Medication Ordered: DuoNeb Neb Tx 1 unit dose (NOW). Given 01:58 03/05/2017 Skylar Darling RJacqueline Medication Administered: SOLU-MEDROL [IVP] (METHYLPREDNISOLONE SODIUM SUCC), Dose: 125 mg IVP over 2 minute(s), Site: #1 left forearm. Medication Ordered: Solu-MEDROL IV 125 mg (NOW). Given 02:56 03/05/2017 Skylar Darilng R.N. Medication Administered: ALBUTEROL [NEB TX], Dose: 1 unit dose Nebulizer Neb TX. Medication Ordered: Albuterol Neb Tx 1 unit dose (NOW). Given 03:23 03/05/2017 Skylar Darling R.N. Medication Administered: ZITHROMAX [PO], Dose: 500 mg Tablets PO. Medication Ordered: Zithromax PO 500 mg (NOW).
--- NOTE | 2017-03-09 19:02 | ED DISCHARGE INSTRUCTIONS ---
Patient: CAROL ANN LEMUS General Instructions [facility] VisitID: [id number] [address] [place] [address] 72y, M Registration Date/Time: 03/05/2017 Acute exacerbation of COPD. INSTRUCTIONS Warnings: Further evaluation is necessary. GENERAL WARNINGS: Return or contact your physician immediately if your condition worsens or changes unexpectedly, if not improving as expected, or if other problems arise. Your Current Medications: CONTINUE TAKING THE FOLLOWING MEDICATIONS: OTC laxative *. Senna Laxative Oral. Spiriva HandiHaler Inhalation. Symbicort Inhalation. Prescription Medications: Albuterol HFA oral inhaler: inhale 2 puffs via spacer every 4 hours as needed for wheezing, difficulty breathing or shortness of breath. Dispense one (1) unit. No refill. Prednisone 20 mg: take 3 orally every day for 5 days. Dispense fifteen (15). No refills. Zithromax 250 mg tablets: take 1 orally every day for 4 days. Total course 5 days. No refills. Substitution is permissible. (to complete the course started in the ER; 4 pills) Follow-up: Follow up with your doctor JEN SKELTON in five days. Call for the next available appointment. Understanding of the discharge instructions verbalized by patient. ADDITIONAL INFORMATION COPD Flare Both emphysema and chronic bronchitis are forms of chronic obstructive pulmonary disease (COPD). It is most often caused by many years of smoking tobacco. Many things can make your lung disease suddenly get worse. These causes include the common cold, pneumonia, acute bronchitis, missing doses of your regular breathing medicines, or being around smoke, dust, or other air pollutants. A COPD flare may last 7 to 14 days. Your doctor may prescribe medicineto relax your airways and prevent wheezing. Your doctor may also prescribe antibiotics if he or she thinks you havea bacterial infection. Prednisone can helpease inflammation in a severe attack. Home care Here are things you can do at home: Drink lots of water or other fluids (at least 10 glasses a day) during an attack. This will loosen lung secretions and make it easier to breathe. If you have heart or kidney disease, check with your doctor before you drink extra amounts of fluids. Take prescribed medicine exactly at the times advised. If you have a hand-held inhaler or aerosol breathing medicine, don't use it more than once every 4 hours, unless your doctor tells you to. If you were givenan antibiotic or prednisone, take all of the medicine even if you are feeling better after a few days. Don't smoke. Avoid being aroundthe smoke of others. If you were given an inhaler, use it exactly as directed. If you need to use it more often than prescribed, your condition may be getting worse. Call your doctor. Follow-up care Follow up with your health care provider.If you are 65 or older or have chronic asthma or COPD, you should get a single dose of the pneumococcal vaccine and aflu shot each year. You may need a second dose of the pneumococcal vaccine if you had the first dose at a younger age. Your health care provider will let you know if you need a second dose. For all other people, the usual dose for the pneumococcal vaccine is 1 or 2 shots. Yourprovider can discuss this with you. When to seek medical care Get prompt medical attention ifany of these occur: Increased wheezing or shortness of breath Need to use your inhalers more often than usual without relief Fever of 100.4F(38C) or higher, or as directed by your health care provider Coughing up lots of dark-colored or bloody sputum (mucus) Chest pain with each breath You do not start to improve within 24 hours Albuterol Sulfate Pressurized inhalation, suspension What is this medicine? ALBUTEROL (al BYOO ter ole) is a bronchodilator. It helps open up the airways in your lungs to make it easier to breathe. This medicine is used to treat and to prevent bronchospasm. How should I use this medicine? This medicine is for inhalation through the mouth. Follow the directions on your prescription label. Take your medicine at regular intervals. Do not use more often than directed. Make sure that you are using your inhaler correctly. Ask you doctor or health care provider if you have any questions. Talk to your service associate regarding the use of this medicine in children. Special care may be needed. What side effects may I notice from receiving this medicine? Side effects that you should report to your doctor or health healthcare administration internship as soon as possible: allergic reactions like skin rash, itching or hives, swelling of the face, lips, or tongue breathing problems chest pain feeling faint or lightheaded, falls high blood pressure irregular heartbeat fever muscle cramps or weakness pain, tingling, numbness in the hands or feet vomiting Side effects that usually do not require medical attention (report to your doctor or health healthcare administration internship if they continue or are bothersome): cough difficulty sleeping headache nervousness or trembling stomach upset stuffy or runny nose throat irritation unusual taste What may interact with this medicine? anti-infectives like chloroquine and pentamidine caffeine cisapride diuretics medicines for colds medicines for depression or for emotional or psychotic conditions medicines for weight loss including some herbal products methadone some antibiotics like clarithromycin, erythromycin, levofloxacin, and linezolid some heart medicines steroid hormones like dexamethasone, cortisone, hydrocortisone theophylline thyroid hormones What if I miss a dose? If you miss a dose, use it as soon as you can. If it is almost time for your next dose, use only that dose. Do not use double or extra doses. Where should I keep my medicine? Keep out of the reach of children. Store at room temperature between 15 and 30 degrees C (59 and 86 degrees F). The contents are under pressure and may burst when exposed to heat or flame. Do not freeze. This medicine does not work as well if it is too cold. Throw away any unused medicine after the expiration date. Inhalers need to be thrown away after the labeled number of puffs have been used or by the expiration date; whichever comes first. Ventolin HFA should be thrown away 12 months after removing from foil pouch. Check the instructions that come with your medicine. What should I tell my health care provider before I take this medicine? They need to know if you have any of the following conditions: diabetes heart disease or irregular heartbeat high blood pressure pheochromocytoma seizures thyroid disease an unusual or allergic reaction to albuterol, levalbuterol, sulfites, other medicines, foods, dyes, or preservatives or trying to get breast-feeding What should I watch for while using this medicine? Tell your doctor or health healthcare administration internship if your symptoms do not improve. Do not use extra albuterol. If your asthma or bronchitis gets worse while you are using this medicine, call your doctor right away. If your mouth gets dry try chewing sugarless gum or sucking hard candy. Drink water as directed. Prednisone Oral tablet What is this medicine? PREDNISONE (PRED ni sone) is a corticosteroid. It is commonly used to treat inflammation of the skin, joints, lungs, and other organs. Common conditions treated include asthma, allergies, and arthritis. It is also used for other conditions, such as blood disorders and diseases of the adrenal glands. How should I use this medicine? Take this medicine by mouth with a glass of water. Follow the directions on the prescription label. Take this medicine with food. If you are taking this medicine once a day, take it in the morning. Do not take more medicine than you are told to take. Do not suddenly stop taking your medicine because you may develop a severe reaction. Your doctor will tell you how much medicine to take. If your doctor wants you to stop the medicine, the dose may be slowly lowered over time to avoid any side effects. Talk to your service associate regarding the use of this medicine in children. Special care may be needed. What side effects may I notice from receiving this medicine? Side effects that you should report to your doctor or health healthcare administration internship as soon as possible: allergic reactions like skin rash, itching or hives, swelling of the face, lips, or tongue changes in emotions or moods changes in vision depressed mood eye pain fever or chills, cough, sore throat, pain or difficulty passing urine increased thirst swelling of ankles, feet Side effects that usually do not require medical attention (report to your doctor or health healthcare administration internship if they continue or are bothersome): confusion, excitement, restlessness headache nausea, vomiting skin problems, acne, thin and shiny skin trouble sleeping weight gain What may interact with this medicine? Do not take this medicine with any of the following medications: metyrapone mifepristone This medicine may also interact with the following medications: aminoglutethimide amphotericin B aspirin and aspirin-like medicines barbiturates certain medicines for diabetes, like glipizide or glyburide cholestyramine cholinesterase inhibitors cyclosporine digoxin diuretics ephedrine female hormones, like estrogens and control pills isoniazid ketoconazole NSAIDS, medicines for pain and inflammation, like ibuprofen or naproxen phenytoin rifampin toxoids vaccines warfarin What if I miss a dose? If you miss a dose, take it as soon as you can. If it is almost time for your next dose, talk to your doctor or health healthcare administration internship. You may need to miss a dose or take an extra dose. Do not take double or extra doses without advice. Where should I keep my medicine? Keep out of the reach of children. Store at room temperature between 15 and 30 degrees C (59 and 86 degrees F). Protect from light. Keep container tightly closed. Throw away any unused medicine after the expiration date. What should I tell my health care provider before I take this medicine? They need to know if you have any of these conditions: Sirena's syndrome diabetes glaucoma heart disease high blood pressure infection (especially a virus infection such as chickenpox, cold sores, or herpes) kidney disease liver disease mental illness myasthenia gravis osteoporosis seizures stomach or intestine problems thyroid disease an unusual or allergic reaction to lactose, prednisone, other medicines, foods, dyes, or preservatives or trying to get breast-feeding What should I watch for while using this medicine? Visit your doctor or health healthcare administration internship for regular checks on your progress. If you are taking this medicine over a prolonged period, carry an identification card with your name and address, the type and dose of your medicine, and your doctor's name and address. This medicine may increase your risk of getting an infection. Tell your doctor or health healthcare administration internship if you are around anyone with measles or chickenpox, or if you develop sores or blisters that do not heal properly. If you are going to have surgery, tell your doctor or health healthcare administration internship that you have taken this medicine within the last twelve months. Ask your doctor or health healthcare administration internship about your diet. You may need to lower the amount of salt you eat. This medicine may affect blood sugar levels. If you have diabetes, check with your doctor or health healthcare administration internship before you change your diet or the dose of your diabetic medicine. Azithromycin Oral tablet What is this medicine? AZITHROMYCIN (az ith tammie MYE sin) is a macrolide antibiotic. It is used to treat or prevent certain kinds of bacterial infections. It will not work for colds, flu, or other viral infections. How should I use this medicine? Take this medicine by mouth with a full glass of water. Follow the directions on the prescription label. The tablets can be taken with food or on an empty stomach. If the medicine upsets your stomach, take it with food. Take your medicine at regular intervals. Do not take your medicine more often than directed. Take all of your medicine as directed even if you think your are better. Do not skip doses or stop your medicine early. Talk to your service associate regarding the use of this medicine in children. Special care may be needed. What side effects may I notice from receiving this medicine? Side effects that you should report to your doctor or health healthcare administration internship as soon as possible: allergic reactions like skin rash, itching or hives, swelling of the face, lips, or tongue confusion, nightmares or hallucinations dark urine difficulty breathing hearing loss irregular heartbeat or chest pain pain or difficulty passing urine redness, blistering, peeling or loosening of the skin, including inside the mouth white patches or sores in the mouth yellowing of the eyes or skin Side effects that usually do not require medical attention (report to your doctor or health healthcare administration internship if they continue or are bothersome): diarrhea dizziness, drowsiness headache stomach upset or vomiting tooth discoloration vaginal irritation What may interact with this medicine? Do not take this medicine with any of the following medications: lincomycin This medicine may also interact with the following medications: amiodarone antacids cyclosporine digoxin magnesium nelfinavir phenytoin warfarin What if I miss a dose? If you miss a dose, take it as soon as you can. If it is almost time for your next dose, take only that dose. Do not take double or extra doses. Where should I keep my medicine? Keep out of the reach of children. Store at room temperature between 15 and 30 degrees C (59 and 86 degrees F). Throw away any unused medicine after the expiration date. What should I tell my health care provider before I take this medicine? They need to know if you have any of these conditions: kidney disease liver disease irregular heartbeat or heart disease an unusual or allergic reaction to azithromycin, erythromycin, other macrolide antibiotics, foods, dyes, or preservatives or trying to get breast-feeding What should I watch for while using this medicine? Tell your doctor or health healthcare administration internship if your symptoms do not improve. Do not treat diarrhea with over the counter products. Contact your doctor if you have diarrhea that lasts more than 2 days or if it is severe and watery. This medicine can make you more sensitive to the sun. Keep out of the sun. If you cannot avoid being in the sun, wear protective clothing and use sunscreen. Do not use sun lamps or tanning beds/booths. You have been given the following additional information: COPD Flare Albuterol Sulfate Pressurized inhalation, suspension Prednisone Oral tablet Azithromycin Oral tablet (Electronically signed by Jean Claude Jordan MD 03/09/2017 19:02)
--- NOTE | 2017-03-09 19:02 | ED MAR SUMMARY ---
..... Medication Administration Record [facility] [address] [place] [address] Patient: CAROL ANN LEMUS Visit ID: [id number] 72y, M Weight: 68.0 kg Height/Length: 72 in BMI: 20.3 ALLERGIES: No Known Drug Allergy Given 01:42 03/05/2017 Yusuf Walker, Medication Administered: DUONEB [NEB TX] (IPRATROPIUM-ALBUTEROL), Dose: 1 unit dose Nebulizer Neb TX. Medication Ordered: DuoNeb Neb Tx 1 unit dose (NOW). Given 01:58 03/05/2017 Skylar Darling RJacqueline Medication Administered: SOLU-MEDROL [IVP] (METHYLPREDNISOLONE SODIUM SUCC), Dose: 125 mg IVP over 2 minute(s), Site: #1 left forearm. Medication Ordered: Solu-MEDROL IV 125 mg (NOW). Given 02:56 03/05/2017 Skylar Darling R.N. Medication Administered: ALBUTEROL [NEB TX], Dose: 1 unit dose Nebulizer Neb TX. Medication Ordered: Albuterol Neb Tx 1 unit dose (NOW). Given 03:23 03/05/2017 Skylar Darling R.N. Medication Administered: ZITHROMAX [PO], Dose: 500 mg Tablets PO. Medication Ordered: Zithromax PO 500 mg (NOW).
--- NOTE | 2017-03-09 19:02 | ED MED RECONCILIATION SUMMARY ---
Patient: CAROL ANN LEMUS Medication Reconciliation Report [facility] VisitID: [id number] [address] [place] [address] 72y, M Registration Date/Time: 03/05/2017 Weight: 68.0 kg Height/Length: 72 in. BMI: 20.3 ALLERGIES: No Known Drug Allergy The patient's Home Medications are listed below: CONTINUE TAKING THE FOLLOWING MEDICATIONS: OTC laxative Senna Laxative Oral Spiriva HandiHaler Inhalation Symbicort Inhalation The source(s) of the original Home Medication information: Not obtained. The following Medications were given to the patient in the Emergency Department: Duoneb [Neb Tx] Neb TX 1 unit dose, administered: 03/05/2017 1:42:00 AM SOLU-MEDROL [IVP] IVP 125 mg, administered: 03/05/2017 1:58:00 AM Albuterol [Neb Tx] Neb TX 1 unit dose, administered: 03/05/2017 2:56:00 AM Zithromax [PO] PO 500 mg, administered: 03/05/2017 3:23:00 AM The following Medications were prescribed to the patient: Albuterol HFA oral inhaler: inhale 2 puffs via spacer every 4 hours as needed for wheezing, difficulty breathing or shortness of breath. Dispense one (1) unit. No refill. -- Jean Claude Jordan MD Prednisone 20 mg: take 3 orally every day for 5 days. Dispense fifteen (15). No refills. -- Jean Claude Jordan MD Zithromax 250 mg tablets: take 1 orally every day for 4 days. Total course 5 days. No refills. Substitution is permissible.(to complete the course started in the ER; 4 pills) -- Jean Claude Jordan MD
--- NOTE | 2017-03-09 19:02 | ED MED RECONCILIATION SUMMARY ---
Patient: CAROL ANN LMEUS Medication Reconciliation Report [facility] VisitID: [id number] [address] [place] [address] 72y, M Registration Date/Time: 03/05/2017 Weight: 68.0 kg Height/Length: 72 in. BMI: 20.3 ALLERGIES: No Known Drug Allergy The patient's Home Medications are listed below: CONTINUE TAKING THE FOLLOWING MEDICATIONS: OTC laxative Senna Laxative Oral Spiriva HandiHaler Inhalation Symbicort Inhalation The source(s) of the original Home Medication information: Not obtained. The following Medications were given to the patient in the Emergency Department: Duoneb [Neb Tx] Neb TX 1 unit dose, administered: 03/05/2017 1:42:00 AM SOLU-MEDROL [IVP] IVP 125 mg, administered: 03/05/2017 1:58:00 AM Albuterol [Neb Tx] Neb TX 1 unit dose, administered: 03/05/2017 2:56:00 AM Zithromax [PO] PO 500 mg, administered: 03/05/2017 3:23:00 AM The following Medications were prescribed to the patient: Albuterol HFA oral inhaler: inhale 2 puffs via spacer every 4 hours as needed for wheezing, difficulty breathing or shortness of breath. Dispense one (1) unit. No refill. -- Jean Claude Jordan MD Prednisone 20 mg: take 3 orally every day for 5 days. Dispense fifteen (15). No refills. -- Jean Claude Jordan MD Zithromax 250 mg tablets: take 1 orally every day for 4 days. Total course 5 days. No refills. Substitution is permissible.(to complete the course started in the ER; 4 pills) -- Jean Claude Jordan MD
== END 2017-03-05 03:27 | disposition home or self-care (01) ==
LOC: ED SRH 01:29
DX: J44.1 Chronic obstructive pulmonary disease with (acute) exacerbation (principal)
CPT/HCPCS: 90100; 90616; 91320; 92235; 92530; 92610; 95059